=== PATIENT | female | born 1950 | race Caucasian/White ===

== ENCOUNTER → 2016-05-19 | Outpatient (CLI) | payer OTHER, MEDICARE ==
[~2016-05-19] MED LIST: ASPI-435 PO; BUPR-79 PO; CHOL2000 PO; CLON0.5T3 PO; CLR10 PO; CYAN10005 PO; IBUP-1050 PO; MELA1TAB4 PO; MISCCAP80 PO; MULT-188 PO; PRVC10 PO; RANI150T3 PO; ZOLP5TAB6 PO
--- NOTE | 2016-05-19 14:28 | MAMMOGRAPHY REPORT ---
BILATERAL DIGITAL SCREENING MAMMOGRAM WITH CAD: 05/19/2016 CLINICAL HISTORY: Routine screening. Patient has no complaints. TECHNIQUE: Bilateral CC, MLO and left XCCL views were obtained. Current study was also evaluated wi th a Computer Aided Detection (CAD) system. COMPARISON: Comparison is made to exams dated: 05/01/2015 mammogram, 04/27/2013 mammogram, 04/28/2014 flash mogram, 04/26/2012 mammogram, 04/29/2011 ultrasound, and 04/19/2010 mammogram - [facility]. BREAST COMPOSITION: There are scattered areas of fibroglandular density in both breasts. FINDINGS: There are diffuse bilateral round and punctate microcalcifications. No suspicious mass, a rchitectural distortion or cluster of new, suspicious microcalcifications is seen. IMPRESSION: ACR BI-RADS CATEGORY 2: BENIGN There is no mammographic evidence of malignancy. A 1 year screening mammogram is recommended. The p atient will receive written notification of the results. Approximately 10% of breast cancers are not detected with mammography. A negative mammographic repor t should not delay biopsy if a clinically suggestive mass is present. Amira Raymond M.D. ay/:05/19/2016 13:37:20 Ornithology Teacher: Monisha JAMES(R)(M), [facility] letter sent: Normal 1/2 BI-RADS Code: ACR BI-RADS Category 2: Benign
== END | disposition home or self-care (01) ==
LOC: C.MAMM 08:36
PROVIDERS: ATTEND Internal Medicine
DX: Z12.31 Encounter for screening mammogram for malignant neoplasm of breast (principal)

== ENCOUNTER → 2017-05-21 | Outpatient (CLI) | payer OTHER, MEDICARE ==
[~2017-05-21] MED LIST changes: -IBUP-1050 PO; -RANI150T3 PO
--- NOTE | 2017-05-22 07:21 | MAMMOGRAPHY REPORT ---
BILATERAL DIGITAL SCREENING MAMMOGRAM TOMOSYNTHESIS WITH CAD: 05/21/2017 CLINICAL HISTORY: Routine screening. Patient has no complaints. TECHNIQUE: Breast tomosynthesis in addition to standard 2D mammography was performed. Current study was also evaluated with a Computer Aided Detection (CAD) system. COMPARISON: Comparison is made to exams dated: 05/19/2016 mammogram, 05/01/2015 mammogram, 04/28/2014 flash mogram, 04/27/2013 mammogram, 04/26/2012 mammogram, and 04/29/2011 mammogram - [facility] . BREAST COMPOSITION: There are scattered areas of fibroglandular density in both breasts. FINDINGS: No suspicious masses, calcifications, or areas of architectural distortion are noted in ei ther breast. There has been no significant interval change compared to prior exams. Scattered bilater al benign-appearing calcifications are not significantly changed. IMPRESSION: ACR BI-RADS CATEGORY 2: BENIGN There is no mammographic evidence of malignancy. A 1 year screening mammogram is recommended. The pa tient will receive written notification of the results. Approximately 10% of breast cancers are not detected with mammography. A negative mammographic report should not delay biopsy if a clinically suggestive mass is present. Isa Davies M.D. /:05/21/2017 08:46:59 Advertising Director: Rosy JAMES(David)(Basia)(BD), [facility] letter sent: Normal 1/2 BI-RADS Code: ACR BI-RADS Category 2: Benign
== END | disposition home or self-care (01) ==
LOC: C.MAMM 08:28
PROVIDERS: ATTEND Internal Medicine
DX: Z12.31 Encounter for screening mammogram for malignant neoplasm of breast (principal)

== ENCOUNTER 2023-03-24 11:14 | Inpatient (IN) ==
--- NOTE | 2023-02-19 13:57 | PAT Medication Instructions ---
Medication Instructions Date of Service February 19, 2023 Home Medications amlodipine 5 mg tablet 5 mg PO QAM atorvastatin 20 mg tablet 20 mg PO QPM clonazepam 0.5 mg tablet 0.5 mg PO QPM letrozole 2.5 mg tablet 2.5 mg PO QAM aspirin 81 mg tablet,delayed release (Myrtle Low Dose Aspirin) 81 mg PO QAM cholecalciferol (vitamin D3) 50 mcg (2,000 unit) capsule 50 mcg PO QAM loratadine 10 mg tablet (Claritin) 10 mg PO QAM mecobalamin (vitamin B12) 1,000 mcg chewable tablet 1,000 mcg PO QAM melatonin 1 mg tablet 1 mg PO HS vit C,E,zinc,copper-mhoux8a 250 mg-lutein 5 mg-zeaxanthin 1 mg capsule (Ocuvite Adult 50 Plus) 1 cap PO QAM duloxetine 60 mg capsule,delayed release 60 mg PO QAM budesonide 3 mg capsule,delayed,extended release 9 mg PO UD multivitamin 1 tab PO QAM ASK your prescriber and surgeon letrozole 2.5 mg tablet 2.5 mg PO QAM aspirin 81 mg tablet,delayed release (Myrtle Low Dose Aspirin) 81 mg PO QAM STOP taking 2 weeks before surgery (or as soon as possible if surgery is within 2 weeks) vit C,E,zinc,copper-fnntt1l 250 mg-lutein 5 mg-zeaxanthin 1 mg capsule (Ocuvite Adult 50 Plus) 1 cap PO QAM DO NOT take the morning of surgery cholecalciferol (vitamin D3) 50 mcg (2,000 unit) capsule 50 mcg PO QAM loratadine 10 mg tablet (Claritin) 10 mg PO QAM mecobalamin (vitamin B12) 1,000 mcg chewable tablet 1,000 mcg PO QAM budesonide 3 mg capsule,delayed,extended release 9 mg PO UD multivitamin 1 tab PO QAM Take morning of surgery With a small sip of water, OTHERWISE NOTHING TO EAT OR DRINK AFTER MIDNIGHT: amlodipine 5 mg tablet 5 mg PO QAM duloxetine 60 mg capsule,delayed release 60 mg PO QAM Take evening before surgery atorvastatin 20 mg tablet 20 mg PO QPM clonazepam 0.5 mg tablet 0.5 mg PO QPM melatonin 1 mg tablet 1 mg PO HS Other Notes If you have any questions please call us at [phone] or [phone] or [phone] or [phone]
--- NOTE | 2023-02-27 14:16 | Anesthesiology Consultation ---
Date of Service February 27, 2023 Assessment & Plan (1) Encounter for pre-operative examination: Chart Review Chart Review: Acceptable Risk for Surgery (pending PCP clearance ) and Patient seen in Pre Admission Testing - Awaiting PCP clearance 03/05/23 (S)- please fax preop testing for PCP to review per patient request (labs, EKG, CXR) Per PAT appt on 02/27/23, no recent illness/disease exposures, illness related symptoms, or recent illness/disease positive tests. Will leave to surgeon's discretion if preop Covid testing needed Teaching & Discussion Pre-Anesthesia Teaching/Discussion Notes: Instructed NPO after midnight before surgery,except medications with 15 cc of water. Medication instructions provided according to the PAT guidelines. History Surgery Operation Date: 03/13/23 11:55 Proposed Procedures p L4-L5 Decompression and Fusion, Possible L5-S1 Spinal Cord Monitoring - Nikhil Rothman, Height/Weight Height: 5 ft 7 in Weight: 69.7 kg Allergies Allergy/AdvReac Type Severity Reaction Status Date / Time Penicillins Allergy Mild hives Verified 02/19/23 11:51 MYCINS Allergy Mild Hives Uncoded 02/19/23 11:51 SULFA Allergy Unknown Hives Uncoded 02/19/23 11:51 Medications Home Medications Medication Instructions Recorded Confirmed Last Taken amlodipine 5 mg tablet 5 mg PO QAM 10/16/19 02/19/23 Unknown atorvastatin 20 mg tablet 20 mg PO QPM 10/16/19 02/19/23 Unknown clonazepam 0.5 mg tablet 0.5 mg PO QPM 10/16/19 02/19/23 Unknown letrozole 2.5 mg tablet 2.5 mg PO QAM 10/16/19 02/19/23 Unknown aspirin 81 mg tablet,delayed 81 mg PO QAM 04/19/20 02/19/23 Unknown release (Myrtle Low Dose Aspirin) cholecalciferol (vitamin D3) 50 50 mcg PO QAM 04/19/20 02/19/23 Unknown mcg (2,000 unit) capsule loratadine 10 mg tablet (Claritin) 10 mg PO QAM 04/19/20 02/19/23 Unknown mecobalamin (vitamin B12) 1,000 1,000 mcg PO QAM 04/19/20 02/19/23 Unknown mcg chewable tablet melatonin 1 mg tablet 1 mg PO HS 04/19/20 02/19/23 Unknown vit C,E,zinc,copper-uthgo2o 250 1 cap PO QAM 04/19/20 02/19/23 Unknown mg-lutein 5 mg-zeaxanthin 1 mg capsule (Ocuvite Adult 50 Plus) duloxetine 60 mg capsule,delayed 60 mg PO QAM 06/06/22 02/19/23 Unknown release budesonide 3 mg 9 mg PO UD 02/19/23 02/19/23 Unknown capsule,delayed,extended release multivitamin 1 tab PO QAM 02/19/23 02/19/23 Unknown Past Medical History Medical History RLS (restless legs syndrome) Squamous cell skin cancer s/p excisions Colitis recently prescribed meds by Dr Ayala 01/2023 (budesonide)- follows with GI- symptoms improved Hypertension Sleep apnea C PAP Breast cancer - 2019- Right Breast - Invasive Carcinoma, ER/LA+, HER2- s/p right lumpectomy with SN LN removal- s/p XRT; no chemo - Denies limb restriction Lumbar degenerative disc disease Chronic sinusitis Anxiety Exercise / Class Metabolic Activity II 4-5 Yardwork/Stairs/Walk up hill (one flight of stairs- no chest pain or SOB) Past Family History Family History Mother , Passed age 85 of stroke No problems noted. Father , Passed age 85 complications from dementia No problems noted. Brother No problems noted. Brother No problems noted. Other Has no children Past Surgical History Surgical History History of surgery 11/03/18 - Right SLN Excision History of lumpectomy of right breast 09/29/18 Status post injection of intervertebral space for herniated disc 07/06/17 - Lumbar/Sacral with Image Guidance (Dr. Leija) 10/01/17 - Lumbar/Sacral with Image Guidance (Dr. Leija) 12/28/17 - Sacroiliac Joint with Image Guidance (Dr. Leija) History of D&C 1996 History of cystoscopy 07/25/13 History of colonoscopy 03/28/09, 07/05/132022 History of Mohs surgery for squamous cell carcinoma of skin 2017 - Right Upper Arm Past Anesthesia History No Hx of Anesthesia Complications and No Family Hx of Anesthesia Complications History of PONV No Hx of PONV and No Hx of Motion Sickness Social History Smoking Status: Former smoker Do You Dip or Chew Tobacco: No Smoking End Date: Quit 2018 Hx Alcohol Use: Yes Alcohol type: wine alcohol intake frequency: a few times a week Hx Substance Use: No Review of Systems - Chronic cough with CPAP; chronic post nasal drip- stable Patient denies chest pain, shortness of breath, dyspnea on exertion, reflux, wheezing, palpitations. No hx of seizures, stroke, ND. No hx of blood clots or blood transfusions Physical Exam Vital Signs VITALS BP 119/70 P 77 TEMP 98.1 SP02 94% RESP 16 Constitutional no acute distress ENMT Mouth: no TMJ clicking Thyromental Distance: > or= 3.5 Finger Breadths (3.5) Mallampati Class: I Crowns to side teeth and molars Neck neck extension not limited Respiratory normal respiratory effort; no respiratory distress Auscultation: lungs clear to auscultation bilaterally; no wheezes Cardiovascular Rate/Rhythm: regular rate and regular rhythm Heart Sounds: no murmur Vessels: no carotid bruit Musculoskeletal Spine: no pain with cervical ROM Extremities: extremities normal to inspection Psychiatric Orientation: alert Lab Results Anesthesia Preop Results Results Anesthesia Widget: WBC 8.37 K/ul (4.8-10.8) 02/27/23 Hgb 14.4 g/dl (12.0-16.0) 02/27/23 Hct 44.1 % (37.0-47.0) 02/27/23 Plt 271 K/uL (130-400) 02/27/23 Na 138 mmol/L (136-145) 02/27/23 K 4.1 mmol/L (3.5-5.1) 02/27/23 Cl 104 mmol/L (98-107) 02/27/23 CO2 26 mmol/L (21-32) 02/27/23 BUN 21 mg/dl (6-23) 02/27/23 Creat 0.52 mg/dl (0.6-1.2) L 02/27/23 Glucose Level 95 mg/dl (70-99(Fasting)) 02/27/23 PT 10.4 Seconds (9.0-12.0) 02/27/23 PTT 28 Seconds (21-31) 02/27/23 INR 0.9 (0.9-1.1) 02/27/23 Urine Color Yellow 02/27/23 Urine Appearance Clear (Clear) 02/27/23 Urine pH 6.0 (4.5-7.5) 02/27/23 Urine Specific [place] 1.016 (1.000-1.030) 02/27/23 Urine Protein Negative (Negative) 02/27/23 Urine Glucose (UA) Negative (Negative) 02/27/23 Urine Ketones Negative (Negative) 02/27/23 Urine Blood Negative (Negative) 02/27/23 Urine Nitrite Negative (Negative) 02/27/23 Urine Bilirubin Negative (Negative) 02/27/23 Urine Urobilinogen Negative (Negative) 02/27/23 Urine Leukocyte Esterase Negative (Negative) 02/27/23 Blood Type O Positive 02/27/23 Antibody Screen NEGATIVE 02/27/23 Testing Electrocardiogram Date: 02/27/23 Findings: + NSR @ (78bpm) Normal EKG per cardio Chest X-Ray Date: 02/27/23 FINDINGS: PA and lateral chest radiographs are compared to study dated 08/09/2018. Correlation is made with chest CT dated 08/10/2007. The cardiomediastinal silhouette is unremarkable. A 13 mm left upper lobe nodule has been present dating back to 2007. There is minimal bibasilar scarring/atelectasis. The lungs and pleural spaces are otherwise clear. There is no pneumothorax. The skeletal structures are osteopenic. There are chronic/healed left-sided rib fractures. IMPRESSION: 1. No active disease in the chest. 2. A 13 mm left upper lobe pulmonary nodule has been present dating back to 2007. This is of doubtful significance given long-term stability. (Will send to PCP for continuity of care; patient also seeing patient for preop 03/05/23)
[~2023-03-24 11:14] MED LIST changes: +ACETAMINOPHEN 500 MG TAB PO SCH; -ASPI-435 PO; -BUPR-79 PO; -CHOL2000 PO; -CLON0.5T3 PO; -CLR10 PO; -CYAN10005 PO; +DEXAMETHASONE SOD INJ 4 MG/ML VIAL ONE; +GABAPENTIN 300 MG CAP PO SCH; +LIDOCAINE 2% 2 ML VIAL/AMP(20MG/ML) INFIL ONE; +LR 15ML/HR IV SCH; +LR 60ML/HR IV SCH; -MELA1TAB4 PO; +MIDAZOLAM HCL 1 MG/ML 2ML VIAL ONE; -MISCCAP80 PO; -MULT-188 PO; +ONDANSETRON INJ 2 MG/ML 2 ML VIAL ONE; +PROPOFOL IV EMULSION 10 MG/ML 20 ML VIAL IV ONE; -PRVC10 PO; +ROCURONIUM BROMIDE 10 MG/ML 5 ML VIAL IV ONE; +VANCOMYCIN HCL 1,000 MG/270 ML BAG IV SCH; -ZOLP5TAB6 PO; +fentaNYL citrate PF 100 MCG/2 ML VIAL ONE
[2023-03-24] MEDS ORDERED: ATROPINE SULFATE 0.1 MG/ML 10ML SYR IV PRN (12:18)
[2023-03-24] MEDS ORDERED: HYDROmorphone INJ 2 MG/ML SYR/VIAL IV PRN (12:18)
[2023-03-24] MEDS ORDERED: ePHEDrine sulfate 50 MG/ML AMP IV PRN (12:18)
[2023-03-24] MEDS ORDERED: ONDANSETRON INJ 2 MG/ML 2 ML VIAL IV PRN ×2 (12:18→15:50)
--- NOTE | 2023-03-24 12:43 | History & Physical Bridge Note ---
Date of Service March 24, 2023 History & Physical Bridge Note I have examined the patient, reviewed the History & Physical and in the interval since the performance of the History & Physical I have noted the following changes of clinical significance: no changes noted
--- NOTE | 2023-03-24 12:44 | History & Physical Report ---
Date of Service March 24, 2023 Assessment & Plan (1) Neurogenic claudication due to lumbar spinal stenosis: Plan: L4-L5 decompression and fusion, possible L5-S1 History of Present Illness Chief Complaint: Back and bilateral leg pain Primary Care Provider: Daniel Menon PA-C This is a 72-year-old female presents with chronic persistent back and leg pain and failing course of nonoperative care is here for surgical intervention. Allergies Allergy/AdvReac Type Severity Reaction Status Date / Time Penicillins Allergy Mild hives Verified 03/24/23 11:38 MYCINS Allergy Mild Hives Uncoded 03/24/23 11:38 SULFA Allergy Unknown Hives Uncoded 03/24/23 11:38 Home Medications Medication Instructions Recorded Confirmed Type amlodipine 5 mg tablet 5 mg PO QAM 10/16/19 02/19/23 History atorvastatin 20 mg tablet 20 mg PO QPM 10/16/19 02/19/23 History clonazepam 0.5 mg tablet 0.5 mg PO QPM 10/16/19 02/19/23 History letrozole 2.5 mg tablet 2.5 mg PO QAM 10/16/19 03/24/23 History aspirin 81 mg tablet,delayed 81 mg PO QAM 04/19/20 03/24/23 History release (Myrtle Low Dose Aspirin) cholecalciferol (vitamin D3) 50 50 mcg PO QAM 04/19/20 03/24/23 History mcg (2,000 unit) capsule loratadine 10 mg tablet (Claritin) 10 mg PO QAM 04/19/20 03/24/23 History mecobalamin (vitamin B12) 1,000 1,000 mcg PO QAM 04/19/20 03/24/23 History mcg chewable tablet melatonin 1 mg tablet 1 mg PO HS 04/19/20 02/19/23 History vit C,E,zinc,copper-vwmvg2n 250 1 cap PO QAM 04/19/20 02/19/23 History mg-lutein 5 mg-zeaxanthin 1 mg capsule (Ocuvite Adult 50 Plus) duloxetine 60 mg capsule,delayed 60 mg PO QAM 06/06/22 02/19/23 History release budesonide 3 mg 9 mg PO UD 02/19/23 02/19/23 History capsule,delayed,extended release multivitamin 1 tab PO QAM 02/19/23 02/19/23 History Past Med/Surg History Medical History RLS (restless legs syndrome) Squamous cell skin cancer s/p excisions Colitis recently prescribed meds by Dr Ayala 01/2023 (budesonide)- follows with GI- symptoms improved Hypertension Sleep apnea C PAP Breast cancer - 2019- Right Breast - Invasive Carcinoma, ER/IN+, HER2- s/p right lumpectomy with SN LN removal- s/p XRT; no chemo - Denies limb restriction Lumbar degenerative disc disease Chronic sinusitis Anxiety Surgical History History of surgery 11/03/18 - Right SLN Excision History of lumpectomy of right breast 09/29/18 Status post injection of intervertebral space for herniated disc 07/06/17 - Lumbar/Sacral with Image Guidance (Dr. Leija) 10/01/17 - Lumbar/Sacral with Image Guidance (Dr. Leija) 12/28/17 - Sacroiliac Joint with Image Guidance (Dr. Leija) History of D&C 1996 History of cystoscopy 07/25/13 History of colonoscopy 03/28/09, 07/05/13, 2022 History of Mohs surgery for squamous cell carcinoma of skin 2016 - Right Upper Arm Family History Mother , Passed age 85 of stroke No problems noted. Father , Passed age 85 complications from dementia No problems noted. Brother No problems noted. Brother No problems noted. Other Has no children Social History (Updated 11/24/18 @ 09:55 by Serene Patel RN) Smoking Status: Former smoker packs per day: 0.5; Smoking End Date: Quit 2018; Second Hand Exposure: No; Do You Dip or Chew Tobacco: No; Tobacco Cessation Education Requested by Patient: No Hx Alcohol Use: Yes Alcohol type: wine Alcohol Intake Frequency Comment: 2 glasses of wine every other night Hx Substance Use: No Preferred Language: Malagasy Visual Impairment: Limited Hearing Ability: Use of Hearing Aid Aquarium Specialist Required: No Beliefs That Will Affect Care: None marital status: Single Current Living Situation: Alone current occupational status: retired 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
[2023-03-24] MEDS ORDERED: BUPIVACAINE/EPINEPHRINE 0.5% MPF 1:200,000 30 ML VIAL ONE (12:50)
[2023-03-24] MEDS ORDERED: ePHEDrine sulfate 50 MG/5 ML SYR ONE (13:30)
[2023-03-24] MEDS ORDERED: SUGAMMADEX SODIUM 200 MG/2 ML VIAL IV ONE (13:54)
[2023-03-24] MEDS ORDERED: FLOSEAL HEMOSTATIC MATRIX 10ML TOP ONE (14:17)
--- NOTE | 2023-03-24 14:27 | Operative Report ---
Post Operative Report Pre & Post Diagnosis Operation Date: 03/24/23 12:45 Pre-Op Diagnosis: Spondylolisthesis, Lumbar Region Spinal Stenosis Lumbar spinal stenosis with neurogenic claudication Post-Op Diagnosis: Same I identified the patient and participated in the time-out.: Yes Procedure Operation Date: 03/24/23 12:45 Actual Procedures Lumbar decompression bilaterally facetectomies and foraminotomies L3-L4 L4-5 per #2 posterior spinal fusion L4-5 per #3 placed posterior instrumentation L4-5. #4 interbody fusion L4-5. #5 placement Spira 13 x 26 mm at L4-5. #6 placement of locally harvested morselized autograft in the posterior gutters. #7 placement of infuse collagen sponge combined with Koros in the posterior lateral gutters and Morpheus bone graft interbody space. Surgeon Nikhil Rothman DO Commercial Housekeeper Amy Desai Estimated Blood Loss 50 Findings Consistent with Post-Op Diagnosis Specimens None Indications This is a 72-year-old female who presents above-mentioned diagnosis of failed course of nonoperative care is here for surgical invention. Description of Procedure Patient met with identified informed consent obtained. Patient was then taken to the operative suite underwent patient placed in a prone position on the [facility] frame. All bony promises well-padded eyes inspected to ensure no external pressure on the. This point the lumbar spine was prepped and draped in a sterile fashion. Sharp dissection with assistance bradycardia from down to and exposing the lamina transverse processes of L4-5. From caudal cephalad fashion complete laminectomy of L4 partial laminectomy L3 was performed including bilateral medial facetectomies and foraminotomies addressing severe spinal stenosis. Pedicle screws were then placed in L4-L5 bilaterally with assistance of fluoroscopy and the purposes austin placed. By way the transforaminal approach on the right complete discectomy of L4-5 was performed endplates guided to subcortically and bone and a 13 x 26 mm Spira cage with Morpheus bone graft tapped in position. The rods were then compressed locked in final position bilaterally. The transverse processes of L4-5 burred to subcortical bleeding bone. Infuse collagen sponge combined with Koros and local autograft placed in the posterior gutters. 15 round ANJELICA drain inserted. The incision was then closed with 1 Vicryl the fascia 2-0 Vicryl subcutaneously and 4 Monocryl for final skin closure. Steri-Strips sterile dressings placed. Pat ient waken taken to PACU in stable condition. Please note spinal cord monitoring was utilized at the procedure no changes noted. Lastly Amy Desai was present at the entire surgery involved in patient positioning complex portion of the surgery and final skin closure. I attest to the content of the Intraoperative Record and any orders documented therein. Any exceptions are noted below.
--- NOTE | 2023-03-24 14:44 | Fluoroscopy Report ---
FL lumbar spine 2-3V CLINICAL HISTORY: L4-L5 DECOMP/FUSION, POSSIBLE L5-S1 COMPARISON STUDY: CT 08/04/2018 FLUOROSCOPY TIME: 17.3 seconds FLUOROSCOPY IMAGES: 2 EXPOSURE DOSE: 8.37 mGy FINDINGS: A radiopaque sponge is noted anterior to the sacrum. Posterior decompression with interbody [place] and screw fusion and discectomy at L4-L5. The hardware appears intact. Multilevel spondylotic sp urring and facet arthrosis redemonstrated. Note that the images were submitted following completion o f the surgery. IMPRESSION: Fluoroscopic assistance as above. ACT 112: Negative or not required by law. Electronically signed by: Raymundo Patel M.D. 03/24/2023 2:43 PM
[2023-03-24] MEDS: fentaNYL citrate PF 100 MCG/2 ML VIAL IV PRN ×2 (15:07→15:12)
--- NOTE | 2023-03-24 15:36 | Anesthesiology Progress Note ---
Date of Service March 24, 2023 Anesthesia Post Procedure Vital Signs Vital Signs: Temp Pulse Pulse Resp BP Pulse Ox O2 Del Method 03/24/23 15:25 36.5 C 80 17 130/56 L 94 Nasal Cannula 03/24/23 15:15 88 20 139/60 94 Nasal Cannula 03/24/23 15:05 89 17 120/74 96 Nasal Cannula 03/24/23 14:55 86 19 142/63 H 95 Nasal Cannula 03/24/23 14:45 90 16 145/62 H 94 Nasal Cannula 03/24/23 14:37 36.1 C L 96 H 16 133/64 96 Room Air 03/24/23 12:05 37.2 C 73 20 132/80 94 Room Air O2 Flow Rate 03/24/23 15:25 2 03/24/23 15:15 2 03/24/23 15:05 2 03/24/23 14:55 2 03/24/23 14:45 2 03/24/23 14:37 03/24/23 12:05 Pain Intensity Back: Pain Intensity: 5 Transfer of Care Handoff Completed per policy Notes Mental Status: alert / awake / arousable Patient Amnestic to Procedure: Yes Nausea / Vomiting: adequately controlled Pain: adequately controlled Airway Patency, RR, SpO2: stable & adequate BP & HR: stable & adequate Hydration State: stable & adequate Anesthetic Complications: no major complications apparent
[2023-03-24] MEDS ORDERED: NALOXONE HCL 0.4 MG/1 ML VIAL/CARP IV PRN (15:50)
[2023-03-24] MEDS ORDERED: PROMETHAZINE HCL 12.5 MG in SODIUM CHLORIDE 0.9% 50 ML IV PRN (15:50)
[2023-03-24] MEDS ORDERED: diphenhydrAMINE Capsule 25 MG CAP PO PRN (15:50)
[2023-03-24] MEDS ORDERED: LORazepam 0.5 MG TAB PO PRN (15:50)
[2023-03-24] MEDS ORDERED: ONDANSETRON 4 MG OD TAB PO PRN (15:50)
[2023-03-24] MEDS ORDERED: traMADol HCL 50 MG TABLET PO PRN (15:50)
[2023-03-24] MEDS ORDERED: DO NOT ADMINISTER FLU VACCINE PRN (15:50)
[2023-03-24] MEDS ORDERED: ALUMINUM/MAGNESIUM SUSP 30 ML UDC PO PRN (15:50)
[2023-03-24] MEDS ORDERED: FAMOTIDINE 20 MG TAB PO PRN (15:50)
[2023-03-24] MEDS ORDERED: VANCOMYCIN CONSULT ACTIVE PRN (15:50)
[2023-03-24] MEDS ORDERED: bisacodyL 10 MG SUPP PR PRN (15:50)
[2023-03-24] MEDS ORDERED: hydrOXYzine HCl 25 MG TAB PO PRN (15:50)
[2023-03-24] MEDS ORDERED: SOD PHOSPHATE/SOD BIPHOSPHATE ENEMA 132 ML BTL PR PRN (15:50)
[2023-03-24] MEDS ORDERED: HYDROmorphone INJ 1 MG/ML SYRINGE IV PRN (15:50)
[2023-03-24] MEDS ORDERED: HYDROmorphone INJ 0.5 MG/0.5 ML SYR IV PRN (15:50)
[2023-03-24] MEDS ORDERED: ACETAMINOPHEN 1,000 MG/100 ML VIAL IV PRN (15:50)
[2023-03-24] MEDS ORDERED: LORazepam 0.5 MG in SYRINGE 0.25 ML IV PRN (15:50)
[2023-03-24] MEDS ORDERED: METOCLOPRAMIDE HCL INJ 5 MG/ML 2 ML VIAL IV PRN (15:50)
[2023-03-24] MEDS ORDERED: MAGNESIUM HYDROXIDE SUSP 30 ML UDC PO PRN (15:50)
[2023-03-24] MEDS ORDERED: DO NOT ADMINISTER PNEUMOCOCCAL VACCINE PRN (15:50)
[2023-03-24] MEDS: LACTATED RINGER'S 1,000 ML IV SCH (16:09)
--- NOTE | 2023-03-24 16:34 | Hospitalist Consultation ---
Date of Consultation March 24, 2023 Assessment & Plan (1) Neurogenic claudication due to lumbar spinal stenosis: - POD #0 s/p L3-L5 lumbar decompression fusion - Pain management, DVT ppx per the primary team, last BM this morning - adjust miralax to daily abdirahman with hx of colitis and recently finishing budesonide for collagenous colitis - PT/OT consults, pt is planning on outpatient therapy - has multiple friends who are helping her at home - Follow am CBC to monitor for acute blood loss, last Hgb of 14.4 (2) Respiratory insufficiency: (3) Sleep apnea: - Currently requiring supplemental O2 at 2 L with sats 93% - Discussed use of clonazepam while on O2, encouraged CPAP use tonight as she initially decline using it, agreeable after conversation regarding hx of chronic tobacco use with cessation 4 years ago, she reports being on benzo for years to help with sleep - would advise weaning off this in elderly patient with hx of BRENDA - will benefit from discussion with PCP at follow up - CPAP HS ordered, pt brought own from home (4) Anxiety: -Continue clonazepam 0.5 mg every afternoon, duloxetine 60 mg daily (5) Breast cancer: -History of such, 2019, stable/in remission - ER/NE positive, HER2/bon negative, status post right lumpectomy with SNL and removal, s/p XRT, no IV chemo. - Pt taking oral letrozole tablet daily - Follows with outpt oncology - Continue vitamin D supplementation (6) Hypertension: -Chronic, stable -Can continue amlodipine p.o., baby aspirin daily DVT ppx:teds, scds Lines: 2 PIV, ANJELICA drain in place FEN/GI: HH diet CODE: FULL Dispo: From home, likely to remain in the hospital x 1-2 days A total of 45 minutes were spent with greater than 50% of that time face to face with the patient, personally reviewing all current laboratories, imaging studies, past medication reconciliation, outpatient chart review, and discussion with specialists to collaborate care for the patient with attending. Please see attending documentation for corrections and/or additions. Supervising Physician Co-Signing Physician Notes I have seen and discussed the case with the collaborating ROSANA. I agree with the above H&P. I have reviewed and confirmed the patients medical history, the findings on physical examination, and the patients diagnosis and treatment plan with Reji WAYNE and agree with the information documented. In short, Ms. Pantoja is a 72 year old woman with history of breast cancer on letrazole, collagenous colitis, BRENDA on CPAP, chronic insomnia who is now POD 0 for lumbar decompression. Patient on 2 L NC post-op, long standing tobacco use history, no formal diagnosis of COPD. Medicine on consult for comanagement. Gen: Cooperative, pleasant female, sitting upright CV RRR, no murmur Resp diminshed RLL, no wheezing, no crackles, good flow otherwise ABD: soft NTND MSK moving toes, sensation intact Neuro CN II-XII intact #Acute resp insufficiency postoperative -Wean oxygen as tolerated Encourage IS use Use CPAP at night Consider CXR if not improved/persistent O2 requirement #Neurogenic claudication s/p lumbar decompression -pain management per primary service -Follow CBC post op, transfuse < 7 no longer on budesonide taper Resume all home chronic medications I spent a total of 15 minutes coordinating, documenting, and providing care for this patient excluding time spent in the performance of separately billed services. All of the aforementioned completed while collaborating with the assigned physician family services assistant for a full treatment plan. History of Present Illness Reason for Consultation: Medical management Requesting Physician: Dr. Rothman Attending Physician: Nikhil Rothman, History of Present Illness This is a 72-year-old female with PMHx of HTN, breast cancer ER/NE positive, HER2/bon negative, status post right lumpectomy with SNL and removal, s/p XRT, no chemo, BRENDA with CPAP, RLS, anxiety, and lumbar degenerative disc disease, recently treated for collagenous colitis in end jan with budesonide. Hx of smoking, quit 4 year ago. Pt presents to the hospital for elective lumbar decompression fusion L3-L5 by Dr. Rothman on 03/24/2023. PT reports doing well, she denies any acute pain currently. Last BM was this morning. Pt has tolerated clear liquids since coming up to the floor, no food yet but dinner is arriving during our visit. She is no longer on budesonide taper for colitis as her bowels returned to normal. Pt denies any nausea, vomiting. Pt states she does use CPAP HS at home and brought it with her today. Allergies Allergy/AdvReac Type Severity Reaction Status Date / Time Penicillins Allergy Mild hives Verified 03/24/23 11:38 MYCINS Allergy Mild Hives Uncoded 03/24/23 11:38 SULFA Allergy Unknown Hives Uncoded 03/24/23 11:38 Home Medications Medication Instructions Recorded Confirmed Type amlodipine 5 mg tablet 5 mg PO QAM 10/16/19 03/24/23 History atorvastatin 20 mg tablet 20 mg PO QPM 10/16/19 03/24/23 History clonazepam 0.5 mg tablet 0.5 mg PO QPM 10/16/19 03/24/23 History letrozole 2.5 mg tablet 2.5 mg PO QAM 10/16/19 03/24/23 History aspirin 81 mg tablet,delayed 81 mg PO QAM 04/19/20 03/24/23 History release (Myrtle Low Dose Aspirin) cholecalciferol (vitamin D3) 50 50 mcg PO QAM 04/19/20 03/24/23 History mcg (2,000 unit) capsule loratadine 10 mg tablet (Claritin) 10 mg PO QAM 04/19/20 03/24/23 History mecobalamin (vitamin B12) 1,000 1,000 mcg PO QAM 04/19/20 03/24/23 History mcg chewable tablet melatonin 1 mg tablet 1 mg PO HS 04/19/20 03/24/23 History vit C,E,zinc,copper-ifkln0j 250 1 cap PO QAM 04/19/20 03/24/23 History mg-lutein 5 mg-zeaxanthin 1 mg capsule (Ocuvite Adult 50 Plus) duloxetine 60 mg capsule,delayed 60 mg PO QAM 06/06/22 03/24/23 History release budesonide 3 mg 9 mg PO UD 02/19/23 03/24/23 History capsule,delayed,extended release multivitamin 1 tab PO QAM 02/19/23 03/24/23 History Patient History Medical History (Updated 03/24/23 @ 17:09 by Pilar Mendoza PA-C) RLS (restless legs syndrome) Squamous cell skin cancer s/p excisions Colitis recently prescribed meds by Dr Ayala 01/2023 (budesonide)- follows with GI- symptoms improved Hypertension Sleep apnea C PAP Breast cancer - 2019- Right Breast - Invasive Carcinoma, ER/NE+, HER2- s/p right lumpectomy with SN LN removal- s/p XRT; no chemo - Denies limb restriction Lumbar degenerative disc disease Chronic sinusitis Anxiety Surgical History History of surgery 11/03/18 - Right SLN Excision History of lumpectomy of right breast 09/29/18 Status post injection of intervertebral space for herniated disc 07/06/17 - Lumbar/Sacral with Image Guidance (Dr. Leija) 10/01/17 - Lumbar/Sacral with Image Guidance (Dr. Leija) 12/28/17 - Sacroiliac Joint with Image Guidance (Dr. Leija) History of D&C 1996 History of cystoscopy 07/25/13 History of colonoscopy 03/28/09, 07/05/13, 2022 History of Mohs surgery for squamous cell carcinoma of skin 2016 - Right Upper Arm Family History Mother , Passed age 85 of stroke No problems noted. Father , Passed age 85 complications from dementia No problems noted. Brother No problems noted. Brother No problems noted. Other Has no children Social History (Updated 11/24/18 @ 09:55 by Serene Patel RN) Smoking Status: Former smoker packs per day: 0.5; Smoking End Date: Quit 2018; Second Hand Exposure: No; Do You Dip or Chew Tobacco: No; Tobacco Cessation Education Requested by Patient: No Hx Alcohol Use: Yes Alcohol type: wine Alcohol Intake Frequency Comment: 2 glasses of wine every other night Hx Substance Use: No Preferred Language: Slovak Visual Impairment: Limited Hearing Ability: Use of Hearing Aid Coordinator Of Evaluation Required: No Beliefs That Will Affect Care: None marital status: Single Current Living Situation: Alone current occupational status: retired 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 @ [employer] Other Information That Helps Us Care for You: No Feels Safe at Home: Yes Safety Concerns: Feels Safe At This Time Childhood Exposure to Second-Hand Smoke: No during the past year weight has: remained stable Dental Care, Regularly: Yes Assistive Devices: Glasses and Hearing Aid - Bilateral Review of Systems Review of Systems: Constitutional: No fever, sweats or chills Eyes: No diplopia, no worsening or blurred vision ENT: normal hearing, no trouble swallowing Respiratory: No cough, sputum, dyspnea at rest or on exertion, wears CPAP HS Cardiovascular: No chest pain, tightness or palpitations Abdomen: No pain, nausea, vomiting, diarrhea or constipation, Last BM this morning Musculoskeletal: No joint pain, calf pain, swelling Neurologic: No weakness, numbness/tingling, or balance problems Psychiatric: No anxiety or depression Skin: No rash or itch Physical Exam Physical Exam: General: awake, alert, no apparent distress, white, female, BMI 23.9 Head: Normocephalic, atraumatic ENT: PERRL, EOMI, no pharyngeal exudate, mucous membranes moist Chest: Diminished breath sounds at the right base, On 2 L via NC, o2 sats 93%, no adventitious breath sounds Cardiac: Regular rate and rhythm, no murmur, no JVD, normal peripheral pulses, good capillary refill Back : dressing c/d/i, ANJELICA drain with serosanginous bloody outs Abdominal: NABS x 4 quadrants, soft, nondistended, nontender to palpation, no rebound or guarding Extremities: Normal inspection, no peripheral edema or erythema, calfs nontender to palpation Psych: Normal mood and affect Neuro: AAO x 3, strength intact bilaterally and rated 5/5, no motor deficits, speech is clear, no peripheral sensory deficits Results & Data Results & Data Vital Signs (Past 12 Hours) Vital Signs Temp Pulse Pulse Resp BP Pulse Ox O2 Del Method 03/24/23 16:15 36.5 C 88 16 149/76 H 93 Nasal Cannula 03/24/23 15:51 36.5 C 84 16 138/66 94 Nasal Cannula 03/24/23 15:35 83 18 114/49 L 94 Nasal Cannula 03/24/23 15:25 36.5 C 80 17 130/56 L 94 Nasal Cannula 03/24/23 15:15 88 20 139/60 94 Nasal Cannula 03/24/23 15:05 89 17 120/74 96 Nasal Cannula 03/24/23 14:55 86 19 142/63 H 95 Nasal Cannula 03/24/23 14:45 90 16 145/62 H 94 Nasal Cannula 03/24/23 14:37 36.1 C L 96 H 16 133/64 96 Room Air 03/24/23 12:05 37.2 C 73 20 132/80 94 Room Air O2 Flow Rate 03/24/23 16:15 2 03/24/23 15:51 2 03/24/23 15:35 2 03/24/23 15:25 2 03/24/23 15:15 2 03/24/23 15:05 2 03/24/23 14:55 2 03/24/23 14:45 2 03/24/23 14:37 03/24/23 12:05
--- OUTSIDE RECORDS SUMMARY | 2023-03-24 18:15 | External Medical Summary | Summary of Care ---
Author Name Unknown Organization [facility] Address [address] [place] [address] Phone [phone] Care Team Providers Care Fitness Consultant Name Role Phone Anuradha Arroyo PA-C Primary Care Provider [phone] Reason for Visit * Reason Comments eRx-Medication Refill Encounter Details Date Type Department Care Team (Late st Contact Info) Description 03/19/2023 Refill General Internal Medicine [facility] [address] [place] [address] Aym Lew MD [address] [place] [address] Dyslipidemia, goal LDL below 160; Primary insomnia; Periodic limb movement sleep disorder Allergies Active Allergy Reactions Criticality Noted Date Comments Elemental Sulfur 05/23/2015 Erythromycin Base 06/29/2000 hives Penicillins 06/29/2000 Augmentin hives Sulfa Antibiotics 09/17/1999 Hives documented as of this encounter (statuses as of 03/20/2023) Medications Medication Sig Dispensed Refills Start Date End Date Status MELATONIN 1 MG PO TABS one at bedtime 0 Active CLARITIN 10 MG PO TABS One pill by mouth once a day 0 11/22/2013 Active VITAMIN D3 2000 UNITS PO CAPS Take 1 capsule daily. 90 Cap 1 12/02/2013 Active Aspirin 81 MG Tablet Take 1 Tablet by mouth in the morning. 0 Active Cyanocobalamin (VITAMIN B-12) 1000 MCG Tablet Take 1 Tablet by mouth in the morning. 0 06/10/2018 Active Multiple Vitamins-Minerals (OCUVITE ADULT 50+) Capsule Take 1 Capsule by mouth in the morning. 0 Active Letrozole 2.5 MG Oral Tablet (Femara)Indicatio ns:Malignant neoplasm of right female breast, unspecified estrogen receptor status, unspecified site of breast (HCC) Take 1 Tablet by mouth in the morning. 90 Tablet 3 06/05/2022 Active amLODIPine Besylate 5 MG Oral Tablet (Norvasc)Indicati ons:HTN, goal below 140/90 Take 1 Tablet by mouth in the morning. 90 Tablet 3 08/08/2022 Active DULoxetine HCl 60 MG Oral Capsule Delayed Release Particles (Cymbalta)Indicat ions:Spinal stenosis of lumbar region with neurogenic claudication TAKE 1 CAPSULE BY MOUTH EVERY MORNING. DO NOT CUT, CRUSH, OR CHEW 30 Capsule 5 12/19/2022 Active Additional Information Patient taking differently: HS, Reported on 02/12/2023 Womens One Daily Oral Tablet Take by mouth. 0 Active Budesonide 3 MG Oral Capsule Delayed Release Particles (Entocort EC) take 3 tablets by mouth daily for a month then 2 daily for a month then 1 daily for a month. 90 Capsule 1 02/13/2023 Active Atorvastatin Calcium 20 MG Oral Tablet (Lipitor)Indicati ons:Dyslipidemia, goal LDL below 160 Take 1 Tablet by mouth daily. 90 Tablet 1 03/20/2023 Active clonazePAM 0.5 MG Oral Tablet (KlonoPIN)Indicat ions:Primary insomnia,Periodic limb movement sleep disorder TAKE 1 TABLET BY MOUTH AT BEDTIME FOR RESTLESS LEG SYNDROME/INSOMNI A 30 Tablet 0 03/20/2023 Active Atorvastatin Calcium 20 MG Oral Tablet (Lipitor)Indicati ons:Dyslipidemia, goal LDL below 160 Take 1 Tablet (20 mg) by mouth in the morning. 90 Tablet 3 01/06/2022 03/20/19 24 Discontinued clonazePAM 0.5 MG Oral Tablet (KlonoPIN)Indicat ions:Primary insomnia,Periodic limb movement sleep disorder TAKE 1 TABLET BY MOUTH AT BEDTIME FOR RESTLESS LEG SYNDROME/INSOMNI A 30 Tablet 0 02/20/2023 03/20/19 24 Discontinued documented as of this encounter (statuses as of 03/20/2023) Active Problems Problem Noted Date Diagnosed Date Major depressive disorder wi th single episode, in partial remission 03/31/2022 Malignant neoplasm of right female breast 2022 Periodic limb movement sleep disorder 03/18/2021 Anxiety state 11/16/2018 Osteoarthritis, hip, bilateral 06/01/2017 Lumbar degenerative disc disease 06/01/2017 History of Mohs surgery for squamous cell carcin maksim of skin 06/01/2017 Primary insomnia 03/12/2017 Sensorineural hearing loss (SNHL) of both ears 0 11/06/2016 Degenerative disc disease, cervical 09/07/2014 Collagenous colitis 10/17/2013 Cyst of right kidney 09/01/2013 Sleep apnea, obstructive 07/12/2012 Dyslipidemia, goal LDL below 160 11/04/2010 Nodule of left lung 03/13/2008 Overview: Stable [id number] imaging ADVANCE DIRECTIVE INFORMATION 07/15/2004 Overview: No, Advance Directive brochure given to patient. DIVERTICULOSIS OF COLON 12/29/2003 HTN, goal below 140/90 11/28/2003 HISTORY OF TOBACCO USE Chronic sinusitis documented as of this encounter (statuses as of 03/20/2023) Resolved Problems Problem Noted Date Diagnosed Date Resolved Date History of breast cancer 08/09/201807/2022 Squamous cell cancer of skin of upper arm 06/01/2017 06/01/2017 Asymmetrical right sensorineural hearing loss 11/07/19 17 03/18/2021 Dyslipidemia, goal to be determined 02/01/2009 11/04/2010 Overview: Per Lipid Taxonomy. Dyslipidemia, goal LDL below 160 06/12/2008 02/01/2009 Overview: Per Lipid Taxonomy. Pain in limb 01/31/2003 09/18/2016 Dermatitis 09/16/2001 03/12/2017 Hand Dermatitis 09/16/2001 03/12/2017 documented as of this encounter (statuses as of 03/20/2023) Immunizations Name Administration Dates Next Due COVID-19 mRNA, LNP-s, No Pre serve, 2-Dose Series (Fishbowl) 12/13/2020,05/02/2020,04/04/2020 COVID-19, MRNA-LNP, 23-24, P F, 30 MCG/0.3 mL, 12 YRS AND ABOVE, IM (PFIZER-Comirnaty) 02/26/2023 H1N1 2009 Influenza, IM 01/10/2009,01/08/2009 H1N1 2009 Influenza, Intranasal 01/10/2009 HEP A - Hepatitis A (Adult > 18 yrs) 03/12/2006 Pneumococcal Conjugate Vacc, 13 Valent (Prevnar) 03/21/2015 Pneumococcal Conjugate Vacci ne, 20-valent ([id number]) 02/12/2023 Pneumococcal Polysaccharide PPV23 (Pneumovax) 10/17/2013,06/12/2008 RSV Vac., Recomb, Adjuvant, PF,0.5 Ml (Arexvy) 12/12/2022 Seasonal Influenza, PF, 6 M & above, IM , (FluLaval or Fluzone) 12/10/2017,12/23/2016,12/02/2013,12/20,11/03/2011,11/04/2010,11/13/2009 ,02/13/2009,12/09/2007,01/04/2007,02/2005,01/01/2005,03/18/2004, 3,01/14/2002,02/09/2001 Seasonal Influenza, Quadriva lent Hd (Fluzone Hd) 11/25/2022,11/02/2020 Seasonal Influenza, Quadriva lent Hd, 65+ Yrs 11/19/2021 Seasonal Influenza, Quadriva lent, No Preserve, IM 11/05/2015,12/27/2014 Seasonal Influenza, Split, I IV3, With Preserve, Inj 12/02/2013,12/20/2012,11/03/2011,11/04,11/13/2009,02/13/2009,12/09/2007 ,01/04/2007,12/24/2005 Seasonal Influenza, Trivalen t, Adjuvanted, 65+ yrs 11/23/2019,11/16/2018 TD, Preservative Free 03/11/2002 TDAP (age 10 and older)(Boostrix) 02/12/2023,,03/11/2002 Varicella Zoster Vaccine (Adult) 11/03/2011 documented as of this encounter Social History Tobacco Use Types Packs/Day Years Used Date Smoking Tobacco: Former Cigarettes 0.5 50 Q uit: 07/2018 Smokeless Tobacco: Never Comments:quit after fall/rib fractures Alcohol Use Standard Drinks/Week Comments Yes 0 (1 standard drink = 0.6 oz pure alcohol) 2 glasses of wine every other night PHQ-2 Answer Date Recorded PHQ Adult Total Score 0 03/31/2022 Hunger Vital Sign Answer Date Recorded Within the past 12 months, y ou worried that your food would run out before you got the money to buy more. Never true 08/09/19 23 Within the past 12 months, t he food you bought just didn't last and you didn't have money to get more. Never true 08/08/2022 Sex and Gender Information Value Date Recorded Sex Assigned at Female 06/10/2018 11:09 AM EDT Gender Identity Female 06/10/2018 11:09 AM EDT Sexual Orientation Straight 06/10/2018 11 :09 AM EDT Job Start Date Occupation Industry Not on file Not on file Not on file documented as of this encounter Miscellaneous Notes * Telephone Encounter - Simon Burch MD - 03/20/2023 9:12 AM ESTSigned Prescriptions: Disp Refills Atorvastatin Calcium 20 MG Oral Tablet (Li*90 Tab*1 Sig: Take 1 Tablet by mouth daily. Authorizing Provider: ANURADHA ARROYO Ordering User: ALYSSIA LIM clonazePAM 0.5 MG Oral Tablet (KlonoPIN) 30 Tab*0 Sig: TAKE 1 TABLET BY MOUTH AT BEDTIME FOR RESTLESS LEG SYNDROME/INSOMNIA Authorizing Provider: SIMON BURCH * Telephone Encounter - Anuradha Arroyo PA-C - 03/20/2023 8:32 AM ESTPending Prescriptions: Disp Refills clonazePAM 0.5 MG Oral Tablet (KlonoPIN) 30 Tab*0 Sig: TAKE 1 TABLET BY MOUTH AT BEDTIME FOR RESTLESS LEG SYNDROME/INSOMNIA Signed Prescriptions: Disp Refills Atorvastatin Calcium 20 MG Oral Tablet (Li*90 Tab*1 Sig: Take 1 Tablet by mouth daily. Authorizing Provider: ANURADHA ARROYO Ordering User: ALYSSIA LIM * Telephone Encounter - Alyssia Lim [facility] - 03/20/2023 7:02 AM EST Pending Prescriptions: Disp Refills clonazePAM 0.5 MG Oral Tablet (KlonoPIN) 30 Tab*0 Sig: TAKE 1 TABLET BY MOUTH AT BEDTIME FOR RESTLESS LEG SYNDROME/INSOMNIA Signed Prescriptions: Disp Refills Atorvastatin Calcium 20 MG Oral Tablet (Li*90 Tab*1 Sig: Take 1 Tablet by mouth daily. Authorizing Provider: ANURADHA ARROYO Ordering User: ALYSSIA LIM * Telephone Encounter - Alyssia Lim [facility] - 03/20/2023 7:01 AM EST I have reviewed the patients controlled substance dispensing history in the Prescription Drug Monitoring Program in compliance with the [facility] regulations before prescribing a controlled substance. PDMP checked on 03/20/2023. Pending Prescriptions: Disp Refills clonazePAM 0.5 MG Oral Tablet (KlonoPIN) *30 Tab*0 Sig: TAKE 1 TABLET BY MOUTH AT BEDTIME FOR RESTLESS LEG SYNDROME/INSOMNIA Last Visit: 03/05/2023 (in office), Visit date not found (telemedicine) Next Visit: Visit date not found Date medication was last filled: 02/20 Date medication is due for refill: 03/21 Pharmacy: [id number] Is this request for a controlled substance? Yes and Urine Drug Screen Not completed Toxicology results: No results found. However, due to the size of the patient record, not all encounters were searched.Please check Results Review for a complete set of results. Please approve if appropriate. Thank you, Alyssia Lim, PharmD. Clinical Pharmacist Centralized [facility] Pharmacy Services ([facility]) (formerly Telepharmacy) 03/20/2023, 7:01 AM documented in this encounter Plan of Treatment Upcoming Encounters Date Type Department Care Team (Late st Contact Info) Description 04/28/2023 11:00 AM EST Office Visit Family Practice [address] [place] [address] Amy Lew MD [address] [place] [address] [place] [id number] 06/10/2023 10:40 AM EDT Office Visit Neurology [address] [place] [address] Mine Wade PA-C [address] [place] [address] [place] [address] 06/26/2023 10:15 AM EDT Office Visit Dermatology [address] [place] [address] Jayro Barker MD [address] [place] [address] 12/17/2023 2:00 PM EDT Office Visit Hematology/Oncology [address] [place] [address] Dee Dee Ayala CRNP [address] [place], [place] [address] [address] 12/21/2023 11:00 AM EDT Imaging Radiology, [facility] [address] [facility] [place] [address] 01/12/2024 12:30 PM EST Office Visit [facility] Disorders Ctr [facility] [address] [place] [phone] Kerri Martin CRNP [address] [place] [address] 01/14/2024 9:00 AM EST Office Visit General Surgery, [facility] [address] [place] [address] Belkis Garcia MD [address] [place] [id number] Health Maintenance Due Date Last Done Comments Cologuard 1993 Sigmoidoscopy 1993 Fecal Occult Blood Test 11/18/2008 11/19/2007, 04/28 Zoster Vaccines (2 of 3) 12/29/2011 11/03/2011 Depression Screening 03/31/2023 03/31/2022 Mammogram 07/05/2023 07/04/2022, 06/23, 07/01/2021, Additional history exists GFR 02/28/2024 02/27/2023, 07/2022, 06/02/2022, Additional history exists Albumin/Creatinine Ratio 09/26/2024 09/26/2021 Lipid Panel 09/18/2027 09/17/2022, 02/25, 09/10/2021, Additional history exists DXA Scan 12/12/2027 12/11/2020, 11/23, 11/22/2018, Additional history exists Colonoscopy 12/16/2032 12/16/2022, 11/24, 07/05/2013, Additional history exists Colorectal Cancer Screening 12/16/2032 DTaP,Tdap,and Td Vaccines (6 - Td or Tdap) 02/12/2033 02/12/2023, 03/16/2012, 03/11/2002, Additional history exists Influenza Vaccine (FLU shot) Completed 04/2022, 11/19/2021, 11/02/2020, Additional history exists Pneumococcal Vaccine: 65+ Years Completed 02/12/2023, 03/21/2015, 10/17/2013, Additional history exists COVID-19 Vaccine Completed 02/26/2023, , 05/02/2020, Additional history exists GARDASIL-HPV IMMUNIZATION SERIES Aged Out No longer eligible based on patient's age to complete this topic Hepatitis B Aged Out No longer eligi ble based on patient's age to complete this topic MENINGOCOCCAL (MENACTRA/MENVEO) Aged Out No longer eligible based on patient's age to complete this topic documented as of this encounter Medical Devices Not on filedocumented as of this encounter Visit Diagnoses Diagnosis Dyslipidemia, goal LDL below 160 Other and unspecified hyperlipidemia Primary insomnia Persistent disorder of initiating or maintaining sleep Periodic limb movement sleep disorder Periodic limb movement disorder documented in this encounter Advance Directives Documents on File Type Date Recorded Patient Ramp Manager Expl anation Advance Directives and Living Will 03/13/2022 ADVANCE DIRECTIVE / LIVING WILL Power of Malware Analyst 03/13/2022 POWER OF A TTORNEY Care Teams Fitness Consultant Relationship Specialty Start Date End Date Anuradha Arroyo PA-C [address] [place] [id number] PCP - General Physician Quality Control Coordinator 12/12/20 documented as of this encounter
--- OUTSIDE RECORDS SUMMARY | 2023-03-24 18:15 | External Medical Summary | Summary of Care ---
Author Name Unknown Organization [facility] Address [address] [place] [address] Phone [phone] Care Team Providers Care Lands Resource Manager Name Role Phone Daniel Menon PA-C Primary Care Provider [phone]- [phone] Reason for Visit * Reason Comments Animal Bite Dog Encounter Details Date Type Department Care Team (Latest Contact Info) Description 03/09/2023 9:30 AM EST Convenient Care Visit [facility] [address] [place] [address] Camelia Stanton PA-C [address] [place] [address] [place] [address] Dog bite, initial encounter*; Cellulitis of left upper extremity Allergies Active Allergy Reactions Criticality Noted Date Comments Elemental Sulfur 05/23/2015 Erythromycin Base 06/29/2000 hives Penicillins 06/29/2000 Augmentin hives Sulfa Antibiotics 09/17/1999 Hives documented as of this encounter (statuses as of 03/09/2023) Medications Medication Sig Dispensed Refills Start Date [...] by mouth in the morning. 0 Active Atorvastatin Calcium 20 MG Oral Tablet (Lipitor)Indication s:Dyslipidemia, goal LDL below 160 Take 1 Tablet (20 mg) by mouth in the morning. 90 Tablet 3 01/06/2022 Active Additional Information Patient taking differently:20 mg Oral Daily(Non-Specified), Takes at night, Reported on 12/12/2022 Letrozole 2.5 MG Oral Tablet (Femara)Indications :Malignant neoplasm of right female breast, unspecified estrogen receptor status, unspecified site of breast (HCC) Take 1 Tablet by mouth in the morning. 90 Tablet 3 06/05/2022 Active amLODIPine Besylate 5 MG Oral Tablet (Norvasc)Indication s:HTN, goal below 140/90 Take 1 Tablet by mouth in the morning. 90 Tablet 3 08/08/2022 Active DULoxetine HCl 60 MG Oral Capsule Delayed Release Particles (Cymbalta)Indicatio ns:Spinal stenosis of lumbar region with neurogenic claudication [...] a month. 90 Capsule 1 02/13/2023 Active clonazePAM 0.5 MG Oral Tablet (KlonoPIN)Indicatio ns:Primary insomnia,Periodic limb movement sleep disorder TAKE 1 TABLET BY MOUTH AT BEDTIME FOR RESTLESS LEG SYNDROME/INSOMNIA 30 Tablet 0 02/20/2023 Active Doxycycline Hyclate 100 MG Oral CapsuleIndications: Dog bite, initial encounter,Celluliti s of left upper extremity Take 1 Capsule by mouth in the morning and 1 Capsule before bedtime. Do all this for 10 days. Until gone.. 20 Capsule 0 03/09/2023 03/19/2023 Active metroNIDAZOLE 500 MG Oral Tablet (Flagyl)Indications :Dog bite, initial encounter,Celluliti s of left upper extremity Take 1 Tablet by mouth in the morning and 1 Tablet at noon and 1 Tablet before bedtime. Do all this for 7 days. 21 Tablet 0 03/09/2023 03/16/2023 Active documented as of this encounter (statuses as of 03/09/2023) Active Problems Problem Noted Date Diagnosed Date [...] Nodule of left lung 03/13/2008 Overview: Stable [id number] imaging ADVANCE DIRECTIVE INFORMATION 07/15/2004 Overview: No, Advance Directive brochure given to patient. DIVERTICULOSIS OF COLON 12/29/2003 HTN, goal below 140/90 11/28/2003 HISTORY OF TOBACCO USE Chronic sinusitis documented as of this encounter (statuses as of 03/09/2023) Resolved Problems Problem Noted Date Diagnosed Date [...] as of this encounter (statuses as of 03/09/2023) Immunizations Name Administration Dates Next Due COVID-19 mRNA, LNP-s, No Pre serve, 2-Dose Series (mysportgroup) 12/13/2020,05/02/2020,04/04/2020 COVID-19, MRNA-LNP, 23-24, P F, 30 MCG/0.3 mL, 12 YRS AND ABOVE, IM ([employer]-Comirnat) 02/26/2023 H1N1 2009 Influenza, IM 01/10/2009,01/08/2009 H1N1 2009 Influenza, Intranasal 01/10/2009 HEP A - Hepatitis A (Adult > 18 yrs) 03/12/2006 Pneumococcal Conjugate Vacc, 13 Valent (Prevnar) 03/21/2015 Pneumococcal Conjugate Vacci ne, 20-valent ([id number]) 02/12/2023 Pneumococcal Polysaccharide PPV23 (Pneumovax) 10/17/2013,06/12/2008 RSV [...] on file documented as of this encounter Last Filed Vital Signs Vital Sign Reading Time Taken Comments Blood Pressure 124/74 03/09/2023 9:42 AM EST Pulse 96 03/09/2023 9:42 AM EST Temperature 36.8 C (98.3 F) 03/09/2023 9:42 AM ES T Respiratory Rate 18 03/09/2023 9:42 AM EST Oxygen Saturation 96% 03/09/2023 9:42 AM EST Inhaled Oxygen Concentration - - Weight 69.5 kg (153 lb 3.2 oz) 03/09/2023 9:42 A M EST Height - - Body Mass Index 24.04 03/05/2023 8:05 AM EST documented in this encounter Patient Instructions * Patient Instructions* Camelia Stanton PA-C - 03/09/2023 10:09 AM EST You were prescribed doxycyline. Take medication as directed. This drug may make you sunburn more easily. Use care if you will be in the sun. control pills and other hormone-based control may not work as well to prevent . Use some other kind of control also like a condom when taking this drug. DO NOT TAKE if or trying to become . It is best to avoid taking this drug at the same time as milk, dairy, or other products with calcium. This drug may not work as well. Do not take bismuth (Pepto-Bismol), calcium, iron, magnesium, zinc, multivitamins with minerals, colestipol, cholestyramine, didanosine, or antacids within 2 hours of this drug. NO ALCOHOL when on metronidazole Take all antibiotic even if symptoms improve sooner. Stopping early increases risk of antibiotic resistance and returning infection. Return if erythema not improving after 36 hours. Apply cold compresses and elevate as needed for comfort. Try over the counter nonsteroidal antiinflammatory drugs such as ibuprofen or naproxen to reduce pain. Use over the counter Zyrtec (certirzine) to help with itching. You can use otc steroid cream on area to also help with itch Hot showers can make the itch worse. Follow-up sooner with PCP sooner or return to be evaluated with any change/worsening symptoms including worsening redness, warmth, fevers, chills or if symptoms persist. If any severe/acute worsening of symptoms develop, go to the ED. documented in this encounter Progress Notes * Camelia Stanton PA-C - 03/09/2023 10:01 AM EST Lulu Pantoja is a 72 year old female who presents with a dog bite on the left hand from a domestic dog. Animal is up to date on rabies vaccine? yes Animal could be captured. The medical billing manager was contacted. HPI: The bite occurred 3 day(s) ago at home. The animal was well-appearing and the bite was from startling the dog awake. Current symptoms include: pain, swelling, and erythema Patient started self-treatment? Yes, describe: bacitracin and washed it The last tetanus shot was 1 year ago. The patient's tetanus status is up to date. Patient was accompanied by Self. 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 06/01/2017 Past Surgical History: Procedure Laterality Date BX LYMPH NODE DEEP AXIL Right 11/03/2018 BIOPSY LYMPH NODE DEEP AXILLARY OPEN performed by Belkis Garcia MD at OR [facility] COLONOSCOPY, DIAGNOSTIC (RECTUM) 03/28/09 diverticulosis, repeat in 5 years COLONOSCOPY, DIAGNOSTIC (RECTUM) 07/05/2013 collagenous colitis/COLONOSCOPY FLEXIBLE PROXIMAL DIAGNOSTIC performed by Delgado Flynn MD at ENDOSCOPY [facility] COLONOSCOPY, DIAGNOSTIC (RECTUM) 12/16/2022 COLONOSCOPY FLEXIBLE PROXIMAL DIAGNOSTIC performed by Dariusz Molina MD at ENDOSCOPY [facility] CYSTOSCOPY 07/25/2013 DILATION AND CURETTAGE (D&C) 1997 [facility] IDENTIFY SENTINEL NODE, RADIOACTIVE TRACER Right 11/03/2018 INJECTION PROCEDURE FOR IDENTIFICATION SENTINEL NODE performed by Belkis Garcia MD at OR [facility] INJECT DX/THER SUBSTANCE INTERLAMINAR LUMBAR/SACRAL W IMAGE GUIDE 07/06/2017 INJECTION SPINE LUMBAR OR SACRAL performed by Cirilo Merlene Leija, DO at OR [facility] INJECT DX/THER SUBSTANCE INTERLAMINAR LUMBAR/SACRAL W IMAGE GUIDE 10/01/2017 INJECTION SPINE LUMBAR OR SACRAL performed by Cirilo Leija, DO at OR [facility] INJECT DX/THER SUBSTANCE INTERLAMINAR LUMBAR/SACRAL W IMAGE GUIDE 06/11/2020 INJECTION SPINE LUMBAR OR SACRAL performed by Cirilo Leija, DO at OR [facility] INJECT DX/THER SUBSTANCE INTERLAMINAR LUMBAR/SACRAL W IMAGE GUIDE 09/13/2020 INJECTION SPINE LUMBAR OR SACRAL performed by Cirilo Leija, DO at OR [facility] INJECT DX/THER SUBSTANCE INTERLAMINAR LUMBAR/SACRAL W IMAGE GUIDE 06/13/2021 INJECTION SPINE LUMBAR OR SACRAL performed by Cirilo Tonny Leija, DO at OR [facility] INJECT DX/THER SUBSTANCE INTERLAMINAR LUMBAR/SACRAL W IMAGE GUIDE 10/30/2021 INJECTION SPINE LUMBAR OR SACRAL performed by Cirilo Leija DO at OR [facility] L-/S-SPINE PARAVERTEBRAL FACET INJ,1 LEVEL 09/26/2019 L-/S-SPINE PARAVERTEBRAL FACET INJ, 1 LEVEL performed by Cirilo Leija DO at OR [facility] L-/S-SPINE PARAVERTEBRAL FACET INJ,1 LEVEL 10/06/2019 L-/S-SPINE PARAVERTEBRAL FACET INJ, 1 LEVEL performed by Cirilo Leija DO at OR [facility] L-/S-SPINE PARAVERTEBRL FACET INJ,2 LEVELS 09/26/2019 L-/S-SPINE PARAVERTEBRAL FACET INJ, 2 LEVELS performed by Cirilo Leija DO at OR [facility] L-/S-SPINE PARAVERTEBRL FACET INJ,2 LEVELS 10/06/2019 L-/S-SPINE PARAVERTEBRAL FACET INJ, 2 LEVELS performed by Cirilo Leija DO at OR [facility] LUMBAR / SACRAL EPIDURAL, SINGLE LEVEL 04/02/2022 INJECTION TRANSFORAMINAL EPIDURAL LUMBAR OR SACRAL performed by Cirilo Leija DO at OR [facility] MASTECTOMY, PARTIAL Right 09/29/2018 MASTECTOMY PARTIAL performed by Belkis Garcia MD at OR [facility] SACROILIAC JOINT INJECT W/GUIDANCE 12/28/2017 INJECTION SACROILIAC JOINT performed by Cirilo Leija DO at OR [facility] SACROILIAC JOINT INJECT W/GUIDANCE 08/18/2019 INJECTION SACROILIAC JOINT performed by Cirilo Leija DO at OR [facility] Social History Tobacco Use Smoking status: Former Packs/day: 0.50 Years: 50.00 Additional pack years: 0.00 Total pack years: 25.00 Types: Cigarettes Quit date: 07/2018 Years since quittin.6 Smokeless tobacco: Never Tobacco comments: quit after fall/rib fractures Substance Use Topics Alcohol use: Yes Comment: 2 glasses of wine every other night Vaping/E-Cigarette Use Vaping/E-Cigarette Use Never User Vaping/E-Cigarette Substances Vaping/E-Cigarette Devices Current Outpatient Medications Medication Sig Dispense Refill MELATONIN 1 MG PO TABS one at bedtime CLARITIN 10 MG PO TABS One pill by mouth once a day VITAMIN D3 2000 UNITS PO CAPS Take 1 capsule daily. 90 Cap 1 Aspirin 81 MG Tablet Take 1 Tablet by mouth in the morning. Cyanocobalamin (VITAMIN B-12) 1000 MCG Tablet Take 1 Tablet by mouth in the morning. Multiple Vitamins-Minerals (OCUVITE ADULT 50+) Capsule Take 1 Capsule by mouth in the morning. Atorvastatin Calcium 20 MG Oral Tablet (Lipitor) Take 1 Tablet (20 mg) by mouth in the morning. (Patient taking differently: Take 1 Tablet by mouth daily. Takes at night) 90 Tablet 3 Letrozole 2.5 MG Oral Tablet (Femara) Take 1 Tablet by mouth in the morning. 90 Tablet 3 amLODIPine Besylate 5 MG Oral Tablet (Norvasc) Take 1 Tablet by mouth in the morning. 90 Tablet 3 DULoxetine HCl 60 MG Oral Capsule Delayed Release Particles (Cymbalta) TAKE 1 CAPSULE BY MOUTH EVERY MORNING. DO NOT CUT, CRUSH, OR CHEW (Patient taking differently: at bedtime.) 30 Capsule 5 Womens One Daily Oral Tablet Take by mouth. Budesonide 3 MG Oral Capsule Delayed Release Particles (Entocort EC) take 3 tablets by mouth daily for a month then 2 daily for a month then 1 daily for a month. 90 Capsule 1 clonazePAM 0.5 MG Oral Tablet (KlonoPIN) TAKE 1 TABLET BY MOUTH AT BEDTIME FOR RESTLESS LEG SYNDROME/INSOMNIA 30 Tablet 0 Doxycycline Hyclate 100 MG Oral Capsule Take 1 Capsule by mouth in the morning and 1 Capsule beforebedtime. Do all this for 10 days. Until gone.. 20 Capsule 0 metroNIDAZOLE 500 MG Oral Tablet (Flagyl) Take 1 Tablet by mouth in the morning and 1 Tablet at noon and 1 Tablet before bedtime. Do all this for 7 days. 21 Tablet 0 No current facility-administered medications for this visit. Review of patient's allergies indicates: Allergen Reactions Elemental Sulfur Erythromycin Base hives Penicillins Augmentin hives Sulfa Antibiotics Hives Family History Problem Relation Age of Onset Diabetes Mother Heart Disorder Mother Arthritis Mother Cancer Mother skin - type unknown Stroke Mother Thyroid Disorder Mother Stroke Father Hypertension Father Ear Problems Father Heart disease Brother Emphysema Grandfather (Maternal) No Known Problems Brother OBJECTIVE: BP 124/74 | Pulse 96 | Temp 36.8 C (98.3 F) (Tympanic) | Resp 18 | Wt 69.5 kg (153 lb 3.2 oz) |LMP 06/23/2002 | SpO2 96% | BMI 24.04 kg/m | BSA 1.81 m General: alert, no distress, cooperative, comfortable HEENT: normocephalic, atraumatic, Supple without masses or lymphadenopathy, sclera and conjuctiva clear bl Heart: regular rate & rhythm, no murmurs and no gallops Lungs: no chest wall tenderness, lungs clear to auscultation Abdomen: abdomen soft, non-tender and normal bowel sounds Extremities: no edema, no clubbing, no cyanosis Neuro Exam: alert & oriented x 3 with fluent speech, no focal motor/sensory deficits, gait normal Skin: left hypothenar eminence with wound with advanced erythema, induration, pain and swelling that extends up the arm with streaking ASSESSMENT/PLAN dog bite Patient referred to the Emergency Department for rabies prophylaxis-refused Dog bite, initial encounter (Primary) - Doxycycline Hyclate 100 MG Oral Capsule; Take 1 Capsule by mouth in the morning and 1 Capsule before bedtime. Do all this for 10 days. Until gone.. - metroNIDAZOLE 500 MG Oral Tablet (Flagyl); Take 1 Tablet by mouth in the morning and 1 Tablet at noon and 1 Tablet before bedtime. Do all this for 7 days. Cellulitis of left upper extremity - Doxycycline Hyclate 100 MG Oral Capsule; Take 1 Capsule by mouth in the morning and 1 Capsule before bedtime. Do all this for 10 days. Until gone.. - metroNIDAZOLE 500 MG Oral Tablet (Flagyl); Take 1 Tablet by mouth in the morning and 1 Tablet at noon and 1 Tablet before bedtime. Do all this for 7 days. Patient has allergies to augmentin and bactrim. Also with colitis and is scheduled for back surgerythis week. Patient to begin doxy and flagyl, and to contact surgeon. Care instructions given. Additional instructions per patient instructions attached. Follow up with PCP in 3 days if symptoms persist. Reasons to go to ED discussed with patient including but not limited to development of acute or severe symptoms. Patient agrees with the plan and demonstrates verbal understanding. Patient stable at the time of discharge. Patient Instructions You were prescribed doxycyline. Take medication as directed. This drug may make you sunburn more easily. Use care if you will be in the sun. control pills and other hormone-based control may not work as well to prevent . Use some other kind of control also like a condom when taking this drug. DO NOT TAKE if or trying to become . It is best to avoid taking this drug at the same time as milk, dairy, or other products with calcium. This drug may not work as well. Do not take bismuth (Pepto-Bismol), calcium, iron, magnesium, zinc, multivitamins with minerals, colestipol, cholestyramine, didanosine, or antacids within 2 hours of this drug. NO ALCOHOL when on metronidazole Take all antibiotic even if symptoms improve sooner. Stopping early increases risk of antibiotic resistance and returning infection. Return if erythema not improving after 36 hours. Apply cold compresses and elevate as needed for comfort. Try over the counter nonsteroidal antiinflammatory drugs such as ibuprofen or naproxen to reduce pain. Use over the counter Zyrtec (certirzine) to help with itching. You can use otc steroid cream on area to also help with itch Hot showers can make the itch worse. Follow-up sooner with PCP sooner or return to be evaluated with any change/worsening symptoms including worsening redness, warmth, fevers, chills or if symptoms persist. If any severe/acute worsening of symptoms develop, go to the ED. Patient instructed to go to the ER if significant worsening of redness or development of high fevers as would likely need IV antibiotics in that scenario. Patient instructed to contact Primary Care Provider if No improvement in 5 days or symptoms worsen. Contact [facility] if unable to reach Primary Care Provider. All required forms completed. Camelia Stanton PA-C [place] [id number] documented in this encounter Nursing Notes * Leila Forrest LPN - 03/09/2023 9:43 AM EST Lulu Pantoja is a 72 year old female who presents to walk-in clinic today complaining of Chief Complaint Patient presents with Animal Bite Dog Main Symptoms: own dog; up-to-date with vaccines; happened Thursday, dog was sleeping and startled the dog and bit the left hand/palm area. Redness and swelling radiating up the arm. Last Tdap: 02/12/23. Tried: cleansed with soap and water and bacterial cream. Pt accompanied by: self documented in this encounter Plan of Treatment Upcoming Encounters Date Type Department Care Team (Late st Contact Info) Description 04/28/2023 11:00 AM EST Office Visit Family Practice [facility] [address] [facility] [place] [address] Amy Lew MD [address] [place] [id number] 06/10/2023 10:40 AM EDT Office Visit Neurology [facility] [address] [place] [address] Mine Wade PA-C [address] [place] [address] 06/26/2023 10:15 AM EDT Office Visit Dermatology [facility] [address] [place] [address] Jayro Barker MD [address] [place] [address] 12/17/2023 2:00 PM EDT Office Visit Hematology/Oncology [facility] [address] [place] [address] Dee Dee Ayala CRNP [address] [facility] [place] [address] 12/21/2023 11:00 AM EDT Imaging Radiology, [place] [id number] [facility] [place] [address] 01/12/2024 12:30 PM EST Office Visit [facility] [address] [facility] [place] [id number] Kerri Martin CRNP [address] [facility] [place] [address] 01/14/2024 9:00 AM EST Office Visit General Surgery, [facility] [address] [place] [address] Belkis Garcia MD [address] [place] [address] Health Maintenance Due Date Last Done Comments [...] as of this encounter Visit Diagnoses Diagnosis Dog bite, initial encounter- Primary Cellulitis of left upper extremity Cellulitis and abscess of upper arm and forearm documented in this encounter Advance Directives Documents on File Type Date Recorded Patient Sub Prior Expl anation Advance Directives and Living Will 03/13/2022 ADVANCE DIRECTIVE / LIVING WILL Power of Visual Education Director 03/13/2022 POWER OF A TTORNEY Care Teams Lands Resource Manager Relationship Specialty Start Date End Date Daniel Menon PA-C [address] [facility] [place] [address] PCP - General Physician Field Adjuster 12/12/20 documented as of this encounter"
--- OUTSIDE RECORDS SUMMARY | 2023-03-24 18:15 | External Medical Summary | Summary of Care ---
Author Name Unknown Organization [facility] Address [address] [place] [address] Phone [phone] Care Team Providers Care Carroter Name Role Phone Daniel Menon PA-C Primary Care Provider +1- [phone] Encounter Details Date Type Department Care Team (Late st Contact Info) Description 12/10/2022 Telephone OR [facility], Operating Room [facility] [address] [place] [phone] Dariusz Molina MD [address] [place] [address] Allergies Active Allergy Reactions Criticality Noted Date Comments Elemental Sulfur 05/23/2015 Erythromycin Base 06/29/2000 hives Penicillins 06/29/2000 Augmentin hives Sulfa Antibiotics 09/17/1999 Hives documented as of this encounter (statuses as of 03/11/2023) Medications Medication Sig Dispensed Refills Start Date [...] the morning. 90 Tablet 3 08/08/2022 Active documented as of this encounter (statuses as of 03/11/2023) Active Problems Problem Noted Date Diagnosed Date [...] Nodule of left lung 03/13/2008 Overview: Stable [id number] imaging ADVANCE DIRECTIVE INFORMATION 07/15/2004 Overview: No, Advance Directive brochure given to patient. DIVERTICULOSIS OF COLON 12/29/2003 HTN, goal below 140/90 11/28/2003 HISTORY OF TOBACCO USE Chronic sinusitis documented as of this encounter (statuses as of 03/11/2023) Resolved Problems Problem Noted Date Diagnosed Date [...] as of this encounter (statuses as of 03/11/2023) Immunizations Name Administration Dates Next Due COVID-19 mRNA, LNP-s, No Pre serve, 2-Dose Series ([employer]) 12/13/2020,05/02/2020,04/04/2020 H1N1 2009 Influenza, IM 01/10/2009,01/08/2009 H1N1 2009 Influenza, Intranasal 01/10/2009 HEP A - Hepatitis A (Adult > 18 yrs) 03/12/2006 Pneumococcal Conjugate Vacc, 13 Valent (Prevnar) 03/21/2015 Pneumococcal Polysaccharide PPV23 (Pneumovax) 10/17/2013,06/12/2008 Seasonal Influenza, PF, 6 M & above, IM , (FluLaval or Fluzone) 12/10/2017,12/23/2016,12/02/2013,12/20,11/03/2011,11/04/2010,11/13/2009 ,02/13/2009,12/09/2007,01/04/2007,1102/2005,01/01/2005,03/18/2004, 3,01/14/2002,02/09/2001 Seasonal Influenza, Quadriva lent Hd (Fluzone Hd) 11/25/2022,11/02/2020 Seasonal Influenza, Quadriva lent Hd, 65+ Yrs 11/19/2021 Seasonal Influenza, Quadriva lent, No Preserve, IM 11/05/2015,12/27/2014 Seasonal Influenza, Split, I IV3, With Preserve, Inj 12/02/2013,12/20/2012,11/03/2011,11/04,11/13/2009,02/13/2009,12/09/2007 ,01/04/2007,12/24/2005 Seasonal Influenza, Trivalen t, Adjuvanted, 65+ yrs 11/23/2019,11/16/2018 TD, Preservative Free 03/11/2002 TDAP (age 10 and older)(Boostrix) 03/16/2012, Varicella Zoster Vaccine (Adult) 11/03/2011 documented as [...] encounter Miscellaneous Notes * Telephone Encounter - Alejandra Mccullough RN - 12/10/2022 2:35 PM EDT Attempted to call for pre anesthesia evaluation. No answer. Voice mail left requesting return call documented in this encounter Plan of Treatment Upcoming Encounters Date Type Department Care Team (Late st Contact Info) Description 04/28/2023 11:00 AM EST [facility] [place] [address] [place] [address] Amy Lew MD 200 [facility] [place] [address] 06/10/2023 10:40 AM EDT Office Visit Neurology [facility] [address] [place] [address] Mine Wade PA-C [address] [facility] [place] [address] 06/26/2023 10:15 AM EDT Office Visit Dermatology [facility] [address] [facility] [place] [address] Jayro Barker MD [address] [place] [address] 12/17/2023 2:00 PM EDT Office Visit Hematology/Oncology [facility] [address] [facility] [place] [address] Dee Dee Ayala CRNP [address] [place] [address] 12/21/2023 11:00 AM EDT Imaging Radiology, [address] [place] [address] 01/12/2024 12:30 PM EST Office Visit Sleep Disorders [facility] [address] [place] [phone] Kerri Martin CRNP [facility] [address] 01/14/2024 9:00 AM EST Office Visit General Surgery, [facility] [address] [facility] [place] [address] Belkis Garcia MD [address] [facility] [place] [address] Health Maintenance Due Date Last Done Comments [...] Not on filedocumented as of this encounter Additional Health Concerns Infection Onset Date Last Indicated Resolved Time C. difficile Rule-Out 02/12/2023 02/12/20232022 11:07 PM EST Gastrointestinal Rule-Out 02/12/2023 02/12/2023 6:16 PM EST documented as of this encounter Advance Directives Documents on File Type Date Recorded Patient Cargo Mate Expl anation Advance Directives and Living Will 03/13/2022 ADVANCE DIRECTIVE / LIVING WILL Power of Honey Producer 03/13/2022 POWER OF A TTORNEY Care Teams Carroter Relationship Specialty Start Date End Date Daniel Menon PA-C [address] [place] [address] [place] [address] PCP - General Physician End Trimmer 12/12/20 documented as of this encounter
--- OUTSIDE RECORDS SUMMARY | 2023-03-24 18:16 | External Medical Summary | Summary of Care ---
Author Name Unknown Organization [facility] Address [address] [place] [address] Phone [phone] Care Team Providers Care Fire Extinguisher Mechanic Name Role Phone Daniel Menon PA-C Primary Care Provider +1- [phone] Reason for Visit * Reason Onset Date Comments Forms Request 03/05/2023 Encounter Details Date Type Department Care Team (Late st Contact Info) Description 03/05/2023 Telephone General Internal Medicine [facility] 200 [facility] [place] [address] Daniel Menon PA-C [facility] [place] [address] Forms Request Allergies Active Allergy Reactions Criticality Noted Date Comments Elemental Sulfur 05/23/2015 Erythromycin Base 06/29/2000 hives Penicillins 06/29/2000 Augmentin hives Sulfa Antibiotics 09/17/1999 Hives documented as of this encounter (statuses as of 03/05/2023) Medications Medication Sig Dispensed Refills Start Date [...] LEG SYNDROME/INSOMNIA 30 Tablet 0 02/20/2023 Active documented as of this encounter (statuses as of 03/05/2023) Active Problems Problem Noted Date Diagnosed Date [...] Nodule of left lung 03/13/2008 Overview: Stable [id number] imaging ADVANCE DIRECTIVE INFORMATION 07/15/2004 Overview: No, Advance Directive brochure given to patient. DIVERTICULOSIS OF COLON 12/29/2003 HTN, goal below 140/90 11/28/2003 HISTORY OF TOBACCO USE Chronic sinusitis documented as of this encounter (statuses as of 03/05/2023) Resolved Problems Problem Noted Date Diagnosed Date [...] as of this encounter (statuses as of 03/05/2023) Immunizations Name Administration Dates Next Due COVID-19 mRNA, LNP-s, No Pre serve, 2-Dose Series ([employer]) 12/13/2020,05/02/2020,04/04/2020 COVID-19, MRNA-LNP, 23-24, P F, 30 MCG/0.3 mL, 12 YRS AND ABOVE, IM (PFIZER-Comirnaty) 02/26/2023 H1N1 2009 Influenza, IM 01/10/2009,01/08/2009 H1N1 2009 Influenza, Intranasal 01/10/2009 HEP A - Hepatitis A (Adult > 18 yrs) 03/12/2006 Pneumococcal Conjugate Vacc, 13 Valent (Prevnar) 03/21/2015 Pneumococcal Conjugate Vacci ne, 20-valent ([id number]) 02/12/2023 Pneumococcal Polysaccharide PPV23 (Pneumovax) 10/17/2013,06/12/2008 RSV [...] encounter Miscellaneous Notes * Telephone Encounter - Eda Shelley LPN - 03/05/2023 10:49 AM EST Pre op exam office note faxed to [facility]. Fax confirmation received from both. Eda Shelley LPN documented in this encounter Plan of Treatment Upcoming Encounters Date Type Department Care Team (Late st Contact Info) Description 04/28/2023 11:00 AM EST Office Visit Family Practice [facility] [place] [address] [place] [address] Amy Lew MD [address] [place] [address] 06/10/2023 10:40 AM EDT Office Visit Neurology [facility] [place] [address] [place] [address] Mine Wade PA-C [address] [place] [address] 06/26/2023 10:15 AM EDT Office Visit Dermatology [facility] [address] [place] [address] [address] Jayro Barker MD [address] [place] [address] 12/17/2023 2:00 PM EDT Office Visit Hematology/Oncology [facility] 200 [facility] [place] [address] Dee Dee Ayala CRNP [address] [place] [address] 12/21/2023 11:00 AM EDT Imaging Radiology, [facility] [address] [facility] [place] [address] 01/12/2024 12:30 PM EST Office Visit Sleep Disorders [facility] [address] [place] [phone] Kerri Martin CRNP [address] [place] [address] 01/14/2024 9:00 AM EST Office Visit General Surgery, [facility] [address] [place] [address] Belkis Garcia MD [address] [place] [address] Health Maintenance Due Date Last Done Comments [...] Not on filedocumented as of this encounter Advance Directives Documents on File Type Date Recorded Patient Auto Body Detailer Expl anation Advance Directives and Living Will 03/13/2022 ADVANCE DIRECTIVE / LIVING WILL Power of Secretary Office Clerk 03/13/2022 POWER OF A TTORNEY Care Teams Fire Extinguisher Mechanic Relationship Specialty Start Date End Date Daniel Menon PA-C [address] [place] [address] [place] [address] PCP - General Physician Oil Sales And Service Rep 12/12/20 documented as of this encounter
--- OUTSIDE RECORDS SUMMARY | 2023-03-24 18:16 | External Medical Summary | Summary of Care ---
Author Name Unknown Organization [facility] Address [address] [place] [address] Phone [phone] Care Team Providers Care Technical Director Name Role Phone Daniel Menon PA-C Primary Care Provider +1- [phone] Reason for Visit * Reason Comments pre-op exam Pre op exam. 03/13/19 23, Dr. Rothman U. Encounter Details Date Type Department Care Team (Late st Contact Info) Description 03/05/2023 8:20 AM EST Office Visit General Internal Medicine [facility] 200 [facility] [place] [address] Daniel Menon PA-C [facility] [place] [address] Preop examination*; Lumbar degenerative disc disease; Major depressive disorder with single episode, in partial remission (HCC); Dyslipidemia, goal LDL below 160; Sleep apnea, obstructive; HTN, goal below 140/90; Sensorineural hearing loss (SNHL) of both ears; Anxiety state; Collagenous colitis Allergies Active Allergy Reactions Criticality Noted Date [...] on 12/12/2022 Letrozole 2.5 MG Oral Tablet (Femara)Indicatio ns:Malignant [...] 02/13/2023 Active clonazePAM 0.5 MG Oral Tablet (KlonoPIN)Indicat ions:Primary insomnia,Periodic limb movement sleep disorder TAKE 1 TABLET BY MOUTH AT BEDTIME FOR RESTLESS LEG SYNDROME/INSOMNI A 30 Tablet 0 02/20/2023 Active Ciprofloxacin HCl 250 MG Oral Tablet (Cipro)Indication s:Acute cystitis without hematuria Take 1 Tablet by mouth in the morning and 1 Tablet before bedtime. Do all this for 3 days. 6 Tablet 0 12/22/2022 03/05/19 24 Discontinued Tugvmsc-Jbllij-Oc ell Pertussis 5-2.5-18.5 LF-MCG/0.5 Suspension Prefilled Syringe (Boostrix)Indicat ions:Need for diphtheria-tetanu s-pertussis (Tdap) vaccine Inject 0.5 mL into a large muscle once for 1 dose. As directed 0.5 mL 0 02/12/2023 03/05/19 24 Discontinued documented as of this encounter [...] Nodule of left lung 03/13/2008 Overview: Stable [id number] imaging ADVANCE DIRECTIVE INFORMATION 07/15/2004 [...] mRNA, LNP-s, No Pre serve, 2-Dose Series ([employer]) 12/13/2020,05/02/2020,04/04/2020 COVID-19, MRNA-LNP, 23-24, P F, 30 MCG/0.3 mL, 12 YRS AND ABOVE, IM (PFIZER-Comirnaty) 02/26/2023 H1N1 2008 Influenza, IM 01/10/2009,01/08/2009 H1N1 2009 Influenza, Intranasal 01/10/2009 HEP A - Hepatitis A (Adult > 18 yrs) 03/12/2006 Pneumococcal Conjugate Vacc, 13 Valent (Prevnar) 03/21/2015 Pneumococcal Conjugate Vacci ne, 20-valent ([id number]) 02/12/2023 Pneumococcal Polysaccharide PPV23 (Pneumovax) 10/17/2013,06/12/2008 RSV Vac., Recomb, Adjuvant, PF,0.5 Ml (Arexvy) 12/12/2022 Seasonal Influenza, PF, 6 M & above, IM , (FluLaval or Fluzone) 12/10/2017,12/23/2016,12/02/2013,12/20,11/03/2011,11/04/2010,11/13/2009 ,02/13/2009,12/09/2007,01/04/2007,11/0 02/2005,01/01/2005,03/18/2004, 3,01/14/2002,02/09/2001 Seasonal Influenza, Quadriva lent Hd (Fluzone [...] 50 Q uit: 07/2018 Smokeless Tobacco: Never Tobacco Cessation:Counseling Given: Not Answered Comments:quit after fall/rib fractures Alcohol Use Standard [...] Sign Reading Time Taken Comments Blood Pressure 128/66 03/05/2023 8:05 AM EST Pulse 90 03/05/2023 8:05 AM EST Temperature 37.3 C (99.1 F) 03/05/2023 8:05 AM ES T Respiratory Rate - - Oxygen Saturation 99% 03/05/2023 8:05 AM EST Inhaled Oxygen Concentration - - Weight 70.1 kg (154 lb 9.6 oz) 03/05/2023 8:05 A M EST Height 170 cm (5' 6.93") 03/05/2023 8:05 AM EST Body Mass Index 24.26 03/05/2023 8:05 AM EST documented in this encounter Progress Notes * Daniel Menon PA-C - 03/05/2023 8:22 AM EST Images from the original note were not included. Pre-Operative Medical Evaluation Procedure Information Type of Surgery: L4-L5 decompression and fusion with possible L5-S1 Referring Physician / Surgeon: Dr. Rothman Date of procedure: 03/13/23 Brief History of Present Illness: 72 y/o female with BRENDA, HLD, HTN, Lumbar DDD, cervical DDD, hearing loss, depression, insomnia, hx breast cancer seen today for preoperative evaluation. Bowels are doing better with budesonide. Using twice daily. Denies chest pain, SOB. All other review of systems reviewed and negative other than mentioned in HPI. 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 (06/01/2017) Lumbar degenerative disc disease (06/01/2017) History of Mohs surgery for squamous cell carcinoma of skin (2017) Primary insomnia (03/12/2017) Asymmetrical right sensorineural hearing loss (11/06/2016) Sensorineural hearing loss (SNHL) of both ears (11/06/2016) Degenerative disc disease, cervical (09/07/2014) Collagenous colitis (10/17/2013) Cyst of right kidney (09/01/2013) Sleep apnea, obstructive (07/12/2012) Dyslipidemia, goal LDL below 160 (11/04/2010) Dyslipidemia, goal to be determined (02/01/2009) Dyslipidemia, goal LDL below 160 (06/12/2008) Nodule of left lung (03/13/2008) ADVANCE DIRECTIVE INFORMATION (07/15/2004) DIVERTICULOSIS OF COLON (12/29/2003) HTN, goal below 140/90 (11/28/2003) Pain in limb (01/31/2003) Dermatitis (09/16/2001) Hand Dermatitis (09/16/2001) HISTORY OF TOBACCO USE Chronic sinusitis Current Medications clonazePAM 0.5 MG Oral Tablet (KlonoPIN), TAKE 1 TABLET BY MOUTH AT BEDTIME FOR RESTLESS LEG SYNDROME/INSOMNIA Budesonide 3 MG Oral Capsule Delayed Release Particles (Entocort EC), take 3 tablets by mouth dailyfor a month then 2 daily for a month then 1 daily for a month. Womens One Daily Oral Tablet, Take by mouth. DULoxetine HCl 60 MG Oral Capsule Delayed Release Particles (Cymbalta), TAKE 1 CAPSULE BY MOUTH EVERY MORNING. DO NOT CUT, CRUSH, OR CHEW (Patient taking differently: HS) amLODIPine Besylate 5 MG Oral Tablet (Norvasc), 5 mg, Oral, Daily(AM) Letrozole 2.5 MG Oral Tablet (Femara), 2.5 mg, Oral, Daily(AM) Atorvastatin Calcium 20 MG Oral Tablet (Lipitor), 20 mg, Oral, Daily(AM) (Patient taking differently: 20 mg, Oral, Daily(Non-Specified), Takes at night ) Multiple Vitamins-Minerals (OCUVITE ADULT 50+) Capsule, 1 Capsule, Oral, Daily(AM) Cyanocobalamin (VITAMIN B-12) 1000 MCG Tablet, 1,000 mcg, Oral, Daily(AM) Aspirin 81 MG Tablet, 81 mg, Oral, Daily(AM) VITAMIN D3 2000 UNITS PO CAPS, Take 1 capsule daily. 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 Past Surgical History: has a past surgical history that includes dilation and curettage (d&c) (1996); Colonoscopy, Diagnostic (Rectum) (03/28/09); Colonoscopy, Diagnostic (Rectum) (07/05/2013); cystoscopy (07/25/2013); Inject Dx/Ther Substance Interlaminar Lumbar/Sacral W Image Guide (07/06/2017); Inject Dx/Ther Substance Interlaminar Lumbar/Sacral W Image Guide (10/01/2017); Sacroiliac Joint Inject w/Guidance (12/28/2017); mastectomy, partial (Right, 09/29/2018); Identify [place] Node, Radioactive Tracer (Right, 11/03/2018); bx lymph node deep axil (Right, 11/03/2018); Sacroiliac Joint Inject w/Guidance (08/18/2019); L-/S-spine Paravertebral facet Inj,1 level (09/26/2019); L-/S-spine Paravertebrl facet Inj,2 levels (09/26/2019); L-/S-spine Paravertebral facet Inj,1 level (10/06/2019); L-/S-spine Paravertebrl facet Inj,2levels (10/06/2019); Inject Dx/Ther Substance Interlaminar Lumbar/Sacral W Image Guide (06/11/2020); Inject Dx/Ther Substance Interlaminar Lumbar/Sacral W Image Guide (09/13/2020); Inject Dx/Ther Substance Interlaminar Lumbar/Sacral W Image Guide (06/13/2021); Inject Dx/Ther Substance Interlaminar Lumbar/Sacral W Image Guide (10/30/2021); Lumbar / Sacral Epidural, single level (04/02/2022); and Colonoscopy, Diagnostic (Rectum) (12/16/2022). Social History: reports that she quit smoking about 4 years ago. Her smoking use included cigarettes. She has a 25.00 pack-year smoking history. She has never used smokeless tobacco. She reports current alcohol use.She reports that she does not use drugs. Family History: family history includes Arthritis in her mother; Cancer in her mother; Diabetes in her mother; Ear Problems in her father; Emphysema in her grandfather (maternal); Heart Disorder in her mother; Heartdisease in her brother; Hypertension in her father; No Known Problems in her brother; Stroke in her father and mother; Thyroid Disorder in her mother. Anesthesia History Type of Anesthesia: General Endotracheal Anesthesia reaction: No History of surgical complications: no Personal history of venous thromboembolic disease: No Physical Exam Vitals: 03/05/23 0805 Temp: 37.3 C (99.1 F) Pulse: 90 SpO2: 99% BP: 128/66 BMI: 24.27 Physical Exam: Constitutional: No acute distress. Head: normocephalic, atraumatic Eyes: PERRL with intact EOM, no scleral icterus, injection, or nystagmus noted. Ears: TM pearly adams bilaterally with light reflex noted without erythema or drainage bilaterally. No tenderness to helix tug. Throat: Pharynx pink without erythema, exudates, or other lesions Cardiovascular: RRR without rubs, murmurs, gallops. Pulmonary: Lungs clear to auscultation without rales, rhonchi, or wheezing. No intercostal retractions. Good air movement. Abdomen: Bowel sounds present x4, soft, nontender. No organomegaly, abdominal bruits, or masses. Neuro: Gait steady without ataxia. CN II-XII grossly intact. P Labs reviewed and are significant for: 02/27/23 CBC, BMP, UA, PT/INR unremarkable Xr chest negative, nodule stable since 2007 EKG by my review is significant for: NSR at 78 Surgical Risk Scoring Revised Cardiac Risk Index (RCRI) High-risk type of surgery (examples include vascular and any open intraperitoneal or intrathoracic procedures): 0=No History of ischemic heart disease (history of myocardial infarction or positive exercise test, current compliant of chest pain considered to be secondary to myocardia ischemia, use of nitrate therapy, or ECG with pathological Q waves; do not count prior coronary revascularization procedure unless one of the other criteria for ischemic heart disease is present): 0=No History of heart failure: 0=No History of cerebrovascular disease: 0=No Diabetes mellitus requiring treatment with insulin: 0=No Preoperative serum creatinine >2.0 mg/dL (177 micromol/L): 0=No Pt has revised cardiac index score of: No Risk Factors- 0.4% (95% CI: 0.1-0.8) Assessment and Plan Preop examination Can proceed as scheduled. Low risk. Will CC. Dr. Rothman and [facility] anesthesia. Lumbar degenerative disc disease Plan as above. Major depressive disorder with single episode, in partial remission (HCC) Cymbalta Dyslipidemia, goal LDL below 160 Lipitor Sleep apnea, obstructive HTN, goal below 140/90 Controlled. Norvasc Sensorineural hearing loss (SNHL) of both ears Stable Anxiety state Cymbalta Collagenous colitis Will continue budesonide taper. Functional Assessment They are able to walk two blocks at a moderate pace. The patient's functional status is adequate (equal to 4 METS). 1 MET: 4 METs: 4-10 METs: Can take care of self, such as eat, dress or use the toilet. Can walk to block or go up a flight of steps. Can do heavy house work. Surgical Risk Assessment Patient is low medical risk for the listed procedure. documented in this encounter Nursing Notes * Eda Shelley LPN - 03/05/2023 8:05 AM EST Chief Complaint Patient presents with pre-op exam Pre op exam. 03/13/2022, Dr. Rothman UJANNA. documented in this encounter Plan of Treatment Upcoming Encounters Date Type Department Care Team (Late st Contact Info) Description 04/28/2023 11:00 AM EST Office Visit Family Practice [facility] [address] [facility] [place] [address] Amy Lew MD 200 [facility] [place] [address] 06/10/2023 10:40 AM EDT Office Visit Neurology [facility] [place] [address] [facility] [place] [address] Mine Wade PA-C 200 [facility] [place] [address] 06/26/2023 10:15 AM EDT Office Visit Dermatology [facility] 200 [facility] [place] [address] Jayro Barker MD [address] [place] [address] 12/17/2023 2:00 PM EDT Office Visit Hematology/Oncology [facility] 200 [facility] [place], [place] [address] Dee Dee Ayala CRNP [address] [place] [address] 12/21/2023 11:00 AM EDT Imaging Radiology, [facility] [address] [facility] [place] [address] 01/12/2024 12:30 PM EST Office Visit Sleep Disorders [facility] [address] [place] [phone] Kerri Martin CRNP [address] [place] [address] 01/14/2024 9:00 AM EST Office Visit General Surgery, [facility] [address] [place] [address] Belkis Garcia MD [address] [place] [address] Health Maintenance Due Date Last Done Comments [...] as of this encounter Visit Diagnoses Diagnosis Preop examination- Primary Preoperative examination, unspecified Lumbar degenerative disc disease Degeneration of lumbar or lumbosacral intervertebral disc Major depressive disorder with single episode, in partial remission (HCC) Dyslipidemia, goal LDL below 160 Other and unspecified hyperlipidemia Sleep apnea, obstructive Obstructive sleep apnea (adult) (pediatric) HTN, goal below 140/90 Unspecified essential hypertension Sensorineural hearing loss (SNHL) of both ears Anxiety state Anxiety state, unspecified Collagenous colitis Other and unspecified noninfectious gastroenteritis and colitis documented in this encounter Advance Directives Documents on File Type Date Recorded Patient Lag Screwer Expl anation Advance Directives and Living Will 03/13/2022 ADVANCE DIRECTIVE / LIVING WILL Power of Security Operations Analyst 03/13/2022 POWER OF A TTORNEY Care Teams Technical Director Relationship Specialty Start Date End Date Daniel Menon PA-C [address] [place], [place] [address] PCP - General Physician Network Services Project Manager 12/12/20 documented as of this encounter
--- OUTSIDE RECORDS SUMMARY | 2023-03-24 18:16 | External Medical Summary | Summary of Care ---
Author Name Unknown Organization [facility] Address [address] [place] [address] Phone [phone] Care Team Providers Care Ada Accommodation Consultant Name Role Phone Daniel Menon PA-C Primary Care Provider +1- [phone] Reason for Visit * Reason Comments pre-op exam Pre op exam. 03/13/19 23, Dr. Rothman U. Encounter Details Date Type Department Care Team (Late st Contact Info) Description 03/05/2023 8:20 AM EST Office Visit General Internal Medicine [facility] [address] [facility] [place] [address] Daniel Menon PA-C [facility] [place] [address] Preop examination*; Lumbar degenerative disc disease; Major [...] 6 Tablet 0 12/22/2022 03/05/19 24 Discontinued Vijyjts-Kgnjes-Hx ell Pertussis 5-2.5-18.5 LF-MCG/0.5 Suspension Prefilled Syringe [...] Nodule of left lung 03/13/2008 Overview: Stable [id number] imaging ADVANCE DIRECTIVE INFORMATION 07/15/2004 [...] mRNA, LNP-s, No Pre serve, 2-Dose Series (Teliportme) 12/13/2020,05/02/2020,04/04/2020 COVID-19, MRNA-LNP, 23-24, P F, 30 MCG/0.3 mL, 12 YRS AND ABOVE, IM (PFIZER-Comirnaty) 02/26/2023 H1N1 2008 Influenza, IM 01/10/2009,01/08/2009 H1N1 2009 Influenza, Intranasal 01/10/2009 HEP A - Hepatitis A (Adult > 18 yrs) 03/12/2006 Pneumococcal Conjugate Vacc, 13 Valent (Prevnar) 03/21/2015 Pneumococcal Conjugate Vacci ne, 20-valent ([id number]) 02/12/2023 Pneumococcal Polysaccharide PPV23 (Pneumovax) 10/17/2013,06/12/2008 RSV [...] w/Guidance (12/28/2017); mastectomy, partial (Right, 09/29/2018); Identify [place] Node, Radioactive Tracer (Right, 11/03/2018); bx lymph [...] Low risk. Will CC. Dr. Rothman and [facility] anesthesia. Lumbar degenerative disc disease Plan as [...] 11:00 AM EST Office Visit Family Practice [facility] [address] [facility] [place] [address] Amy Lew MD [address] [facility] [place] [address] 06/10/2023 10:40 AM EDT Office Visit Neurology [facility] [place] [address] [facility] [place] [address] Mine Wade PA-C [address] [facility] [place] [address] 06/26/2023 10:15 AM EDT Office Visit Dermatology [facility] [address] [facility] [place] [address] Jayro Barker MD [address] [place] [address] 12/17/2023 2:00 PM EDT Office Visit Hematology/Oncology [facility] [address] [facility] [place], [place] [address] Dee Dee Ayala CRNP [address] [place] [address] 12/21/2023 11:00 AM EDT Imaging Radiology, [facility] [address] [facility] [place] [address] 01/12/2024 12:30 PM EST Office Visit Sleep Disorders [facility] [address] [place] [phone] Kerri Martin CRNP [address] [place] [address] 01/14/2024 9:00 AM EST Office Visit General Surgery, [facility] [address] [place] [address] Belkis Garcia MD [address] [place] [address] Health Maintenance Due Date Last Done Comments [...] Documents on File Type Date Recorded Patient Standards Analyst Expl anation Advance Directives and Living Will 03/13/2022 ADVANCE DIRECTIVE / LIVING WILL Power of Rn On Site 03/13/2022 POWER OF A TTORNEY Care Teams Ada Accommodation Consultant Relationship Specialty Start Date End Date Daniel Menon PA-C [address] [place], [place] [address] PCP - General Physician Operations Intelligence Superintendent 12/12/20 documented as of this encounter
--- OUTSIDE RECORDS SUMMARY | 2023-03-24 18:16 | External Medical Summary | Summary of Care ---
Author Name Unknown Organization [facility] Address [address] [place] [address] Phone [phone] Care Team Providers Care Data Deliverables Manager Name Role Phone Daniel Menon PA-C Primary Care Provider +1- [phone] Reason for Visit * Reason Comments pre-op exam Pre op exam. 03/13/19 23, Dr. Rothman U. Encounter Details Date Type Department Care Team (Late st Contact Info) Description 03/05/2023 8:20 AM EST Office Visit General Internal Medicine [facility] 200 [facility] [place] [address] Daniel Menon PA-C [facility] [place] [address] Preop examination*; Lumbar degenerative disc disease; Major [...] 6 Tablet 0 12/22/2022 03/05/19 24 Discontinued Xgzwvto-Nzdxwb-Ot ell Pertussis 5-2.5-18.5 LF-MCG/0.5 Suspension Prefilled Syringe [...] Nodule of left lung 03/13/2008 Overview: Stable [id number] imaging ADVANCE DIRECTIVE INFORMATION 07/15/2004 [...] mRNA, LNP-s, No Pre serve, 2-Dose Series (MesMateriaux) 12/13/2020,05/02/2020,04/04/2020 COVID-19, MRNA-LNP, 23-24, P F, 30 MCG/0.3 mL, 12 YRS AND ABOVE, IM (PFIZER-Comirnaty) 02/26/2023 H1N1 2008 Influenza, IM 01/10/2009,01/08/2009 H1N1 2009 Influenza, Intranasal 01/10/2009 HEP A - Hepatitis A (Adult > 18 yrs) 03/12/2006 Pneumococcal Conjugate Vacc, 13 Valent (Prevnar) 03/21/2015 Pneumococcal Conjugate Vacci ne, 20-valent ([id number]) 02/12/2023 Pneumococcal Polysaccharide PPV23 (Pneumovax) 10/17/2013,06/12/2008 RSV [...] w/Guidance (12/28/2017); mastectomy, partial (Right, 09/29/2018); Identify [place] Node, Radioactive Tracer (Right, 11/03/2018); bx lymph [...] Low risk. Will CC. Dr. Rothman and [facility] anesthesia. Lumbar degenerative disc disease [...] 11:00 AM EST Office Visit Family Practice [facility] 200 [facility] [place] [address] Amy Lew MD [address] [facility] [place] [address] 06/10/2023 10:40 AM EDT Office Visit Neurology [facility] [place] [address] [facility] [place] [address] Mine Wade PA-C [address] [facility] [place] [address] 06/26/2023 10:15 AM EDT Office Visit Dermatology [facility] [address] [facility] [place] [address] Jayro Barker MD [address] [place] [address] 12/17/2023 2:00 PM EDT Office Visit Hematology/Oncology [facility] 200 [facility] [place], [place] [address] Dee Dee Ayala CRNP [address] [place] [address] 12/21/2023 11:00 AM EDT Imaging Radiology, [facility] [address] [facility] [place] [address] 01/12/2024 12:30 PM EST Office Visit Sleep Disorders [facility] [address] [place] [phone] Kerri Martin CRNP [address] [place] [address] 01/14/2024 9:00 AM EST Office Visit General Surgery, 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
--- OUTSIDE RECORDS SUMMARY | 2023-03-24 18:16 | External Medical Summary | Summary of Care ---
Author Name Unknown Organization [facility] Address [address] [place] [address] Phone [phone] Care Team Providers Care Farm Marketer Name Role Phone Daniel Menon PA-C Primary Care Provider +1- [phone] Encounter Details Date Type Department Care Team (Late st Contact Info) Description 02/27/2023 Result Scan Unspecified Department <No scans attached> Allergies Active Allergy Reactions Criticality Noted Date Comments Elemental Sulfur 05/23/2015 Erythromycin Base 06/29/2000 hives Penicillins 06/29/2000 Augmentin hives Sulfa Antibiotics 09/17/1999 Hives documented as of this encounter (statuses as of 03/03/2023) Medications Medication Sig Dispensed Refills Start Date [...] as of this encounter (statuses as of 03/03/2023) Active Problems Problem Noted Date Diagnosed Date [...] Nodule of left lung 03/13/2008 Overview: Stable [id number] imaging ADVANCE DIRECTIVE INFORMATION 07/15/2004 Overview: No, Advance Directive brochure given to patient. DIVERTICULOSIS OF COLON 12/29/2003 HTN, goal below 140/90 11/28/2003 HISTORY OF TOBACCO USE Chronic sinusitis documented as of this encounter (statuses as of 03/03/2023) Resolved Problems Problem Noted Date Diagnosed Date [...] as of this encounter (statuses as of 03/03/2023) Immunizations Name Administration Dates Next Due COVID-19 mRNA, LNP-s, No Pre serve, 2-Dose Series ([employer]aco) 12/13/2020,05/02/2020,04/04/2020 COVID-19, MRNA-LNP, 23-24, P F, 30 MCG/0.3 mL, 12 YRS AND ABOVE, IM (PFIZER-Comirnaty) 02/26/2023 H1N1 2009 Influenza, IM 01/10/2009,01/08/2009 H1N1 2009 Influenza, Intranasal 01/10/2009 HEP A - Hepatitis A (Adult > 18 yrs) 03/12/2006 Pneumococcal Conjugate Vacc, 13 Valent (Prevnar) 03/21/2015 Pneumococcal Conjugate Vacci ne, 20-valent ([id number]) 02/12/2023 Pneumococcal Polysaccharide PPV23 (Pneumovax) 10/17/2013,06/12/2008 RSV [...] on file documented as of this encounter Plan of Treatment Upcoming Encounters Date Type Department Care Team (Late st Contact Info) Description 03/05/2023 8:20 AM EST Office Visit General Internal Medicine [facility] [place] [address] [place] [address] Daniel Menon PA-C [address] [place] [address] 04/01/2023 9:00 AM EST Office Visit General Internal Medicine [facility] [place] [address] [place] [address] Daniel Menon PA-C [address] [place] [address] 06/10/2023 10:40 AM EDT Office Visit Neurology [facility] [place] [address] [place] [address] [address] [address] Mine Wade PA-C [address] [place] [address] [address] [address] 06/26/2023 10:15 AM EDT Office Visit Dermatology [facility] [place] [address] [place] [address] [address] Jayro Barker MD [address] [place] [address] 12/17/2023 2:00 PM EDT Office Visit Hematology/Oncology [facility] [place] [address] [place] [address] [address] Dee Dee Ayala CRNP [address] [facility] [place] [address] 12/21/2023 11:00 AM EDT Imaging Radiology, [place] [address] [facility] [place] [address] 01/12/2024 12:30 PM EST Office Visit Sleep Disorders Ctr [facility] [address] [place] [phone] Kerri Martin CRNP [address] [place] [address] 01/14/2024 9:00 AM EST Office Visit General Surgery, [facility] [address] [place] [address] Belkis Garcia MD [address] [place] [address] Health Maintenance Due Date Last Done Comments Cologuard 1993 Sigmoidoscopy 1993 Fecal Occult Blood Test 11/18/2008 11/19/2007, 04/28 Zoster Vaccines (2 of 3) 12/29/2011 11/03/2011 Depression Screening 03/31/2023 03/31/2022 Mammogram 07/05/2023 07/04/2022, 06/23, 07/01/2021, Additional history exists GFR 11/29/2023 02/27/2023, 07/2022, 06/02/2022, Additional history exists Albumin/Creatinine [...] Not on filedocumented as of this encounter Procedures Procedure Name Priority Date/Time Associated Diagnosis Comments EKG SCANNED RESULT 02/27/2023 documented in this encounter Results * EKG SCANNED RESULT (02/27/2023) 02/27/2023 No Physician Data Unknown EKG documented in this encounter Advance Directives Documents on File Type Date Recorded Patient Merchandising Consultant Expl anation Advance Directives and Living Will 03/13/2022 ADVANCE DIRECTIVE / LIVING WILL Power of Crutch Maker 03/13/2022 POWER OF A TTORNEY Care Teams Farm Marketer Relationship Specialty Start Date End Date Daniel Menon PA-C [address] [place] [address] [place] [address] PCP - General Physician Therapeutic Specialist 12/12/20 documented as of this encounter
[2023-03-24] MEDS: MELATONIN 3 MG TAB PO SCH (20:42)
[2023-03-24] MEDS: clonazePAM 0.5 MG TAB PO SCH (20:42)
[2023-03-24] MEDS: ATORVASTATIN 20 MG TAB PO SCH (20:44)
[2023-03-24] MEDS: DOCUSATE SODIUM/SENNA 50/8.6MG TAB PO SCH (20:44)
[2023-03-25] MEDS: LACTATED RINGER'S 1,000 ML IV SCH (00:13)
[2023-03-25] MEDS ORDERED: VANCOMYCIN HCL 1,000 MG in SODIUM CHLORIDE 0.9% 500 ML IV SCH (00:30)
[2023-03-25] MEDS ORDERED: POLYETHYLENE (MIRALAX) 17 GM PACK PO SCH (06:00)
[2023-03-25 07:24] LABS: Basophils # (auto) 0.02 K/uL (0.00-0.20); Basophils % (auto) 0.2 %; Eosinophils # (auto) 0.01 K/uL (0.00-0.50); Eosinophils % (auto) 0.1 %; Hematocrit (blood only) 37.5 % (37.0-47.0); Hemoglobin 12.4 g/dl (12.0-16.0); Immature Granulocytes # (auto) 0.07 K/uL (0.01-0.20); Immature Granulocytes % (auto) 0.6 %; Lymphocytes # (auto) 1.09 K/uL (1.20-3.40); Lymphocytes % (auto) 9.1 %; Mean Corpuscular Hemoglobin 30.8 pg (25.0-34.0); Mean Corpuscular Hgb Conc 33.1 g/dL (32.0-36.0); Mean Corpuscular Volume 93.3 fL (80.0-100.0); Mean Platelet Volume 9.1 fL (9.4-12.4); Monocytes % (auto) 4.2 %; Neutrophils # (auto) 10.24 K/uL (1.40-6.50); Neutrophils % (auto) 85.8 %; Platelet Count 238 K/uL (130-400); RDW Coefficient of Variation 12.9 % (11.5-14.5); RDW Standard Deviation 44.2 fL (36.4-46.3); Red Blood Count 4.02 M/uL (4.20-5.40); White Blood Count 11.93 K/ul (4.8-10.8)
[2023-03-25 07:49] LABS: BUN Creatinine Ratio 23.8 (10-20); Creatinine Clr Calc Pharmacy 114.3 ml/min; Potassium 4.1 mmol/L (3.5-5.1)
[2023-03-25] MEDS: oxyCODONE HCL IR 5 MG TAB (IMMEDIATE RELEASE) PO PRN ×2 (08:03→20:28)
[2023-03-25] MEDS: LETROZOLE 2.5 MG TAB PO SCH (08:51)
[2023-03-25] MEDS: CHOLECALCIFEROL 25 MCG (1000 UNITS) TAB PO SCH (08:53)
[2023-03-25] MEDS: ASPIRIN 81 MG ECTAB PO SCH (08:53)
[2023-03-25] MEDS: amLODIPine BESYLATE 5 MG TAB PO SCH (08:54)
[2023-03-25] MEDS: CEROVITE ADV FORMULA TAB PO SCH (08:54)
[2023-03-25] MEDS: POLYETHYLENE (MIRALAX) 17 GM PACK PO SCH (08:55)
[2023-03-25] MEDS: CYANOCOBALAMIN (B-12) 500 MCG TABLET PO SCH (08:55)
[2023-03-25] MEDS: LORATADINE 10 MG TAB PO SCH (08:55)
[2023-03-25] MEDS: dexAMETHasone 6 MG in SYRINGE 0 ML IV SCH (08:55)
[2023-03-25] MEDS ORDERED: DULoxetine HCL 60 MG CAP PO SCH ×2 (09:00→21:00)
[2023-03-25] MEDS ORDERED: BUDESONIDE EC 3 MG CAP PO SCH (09:00)
--- NOTE | 2023-03-25 10:49 | Orthopedic Progress Note ---
Date of Service March 25, 2023 Assessment & Plan (1) Neurogenic claudication due to lumbar spinal stenosis: Plan: At this time we will continue physical therapy monitor ANJELICA operatively discharge home in the next few days. Admission and Anticipated Discharge Date Admission Date: March 24, 2023 Subjective Back pain is controlled leg pain markedly improved Physical Exam Physical Exam: Patient is distracted testing. Is comfortable. Results & Data Vital Signs (Past 12 Hours) Vital Signs Temp Pulse Resp BP Pulse Ox O2 Del Method 03/25/23 07:53 37.0 C 71 16 120/50 L 93 Room Air 03/25/23 03:10 36.3 C L 72 16 103/61 93 Room Air 03/24/23 23:02 36.3 C L 79 16 99/61 L 92 Room Air, CPAP
--- NOTE | 2023-03-25 14:23 | Hospitalist Progress Note ---
Date of Service March 25, 2023 Assessment & Plan (1) Neurogenic claudication due to lumbar spinal stenosis: Plan: - POD #1 s/p L3-L5 lumbar decompression fusion - Pain management, DVT ppx per the primary team, last BM this morning - adjust miralax to daily abdirahman with hx of colitis and recently finishing budesonide for collagenous colitis - PT/OT consults, pt is planning on outpatient therapy - has multiple friends who are helping her at home - Follow am CBC to monitor for acute blood loss, last Hgb of 14.4, repeat is 12.4 (2) Respiratory insufficiency: (3) Sleep apnea: Plan: CPAP at HS (4) Anxiety: Plan: Continue clonazepam 0.5 mg every afternoon, duloxetine 60 mg daily (5) Breast cancer: Plan: History of such, 2019, stable/in remission ER/TX positive, HER2/bon negative, status post right lumpectomy with SNL and removal, s/p XRT, no IV chemo. Pt taking oral letrozole tablet daily Follows with outpt oncology Continue vitamin D supplementation (6) Hypertension: Plan: Chronic, stable Can continue amlodipine p.o., baby aspirin daily DVT ppx: SCDS FULL CODE PCP: Daniel Menon PA-C Dispo: per primary Pt was seen and examined in collaboration with Dr. Sears, please see addendum A total of 45 minutes was spent coordinating, documenting, and providing care for this patient excluding time spent in the performance of separately billed services. This included personally viewing all current laboratories and imaging studies, medication reconciliation, outpatient chart review, and discussion with specialists. Admission and Anticipated Discharge Date Admission Date: March 24, 2023 Supervising Physician Co-Signing Physician Notes I have seen and discussed the case with the collaborating ROSANA. I agree with the above H&P. I have reviewed and confirmed the patients medical history, the findings on physical examination, and the patients diagnosis and treatment plan with Reji WAYNE and agree with the information documented. In short, Ms. Pantoja is a 72 year old woman with history of breast cancer on letrazole, collagenous colitis, BRENDA on CPAP, chronic insomnia who is now POD1 for lumbar decompression. Patient no longer requiring O2 Gen: Cooperative, pleasant female, sitting upright CV RRR, no murmur Respno wheezing, no crackles, good flow otherwise ABD: soft NTND MSK moving toes, sensation intact Neuro CN II-XII intact #Acute on chronic pulmonary insufficiency postoperative *resolved history of BRENDA, tobacco use, likely underlying COPD component -Wean oxygen as tolerated, now on room air Encourage IS use Use CPAP at night #Acute blood loss 2/2 post op Hgb 14 preop down to 12, trend H/H, transfuse < 7 #Neurogenic claudication s/p lumbar decompression -pain management per primary service -Follow CBC post op, transfuse < 7 -PT/OT as tolerated Resume all home chronic medications I spent a total of 15 minutes coordinating, documenting, and providing care for this patient excluding time spent in the performance of separately billed services. All of the aforementioned completed while collaborating with the assigned physician records management assistant for a full treatment plan. Subjective Patient was seen and examined in room 356-2. Follow up lumbar surgery. She denies any f/c/s, chest pain, sob, n/v/d. Her Back has minimal discomfort. She had lynch cath removed and is urinating w/o difficulty. Review of Systems Review of Systems: All systems reviewed & are unremarkable except as noted in HPI & below Physical Exam Physical Exam: Gen: WD/WN, sitting up in bedside chair, NAD, A&O x3 HEENT: Normocephalic, atraumatic, conjunctivae moist, sclerae anicteric, mucous membranes moist. Lung: Clear to Auscultation bilaterally, no wheezes/rales/rhonchi Heart: Regular rate, regular rhythm, no murmurs, rubs, or gallops Abdomen: Soft, NT, ND +BS x 4 Extremities: No edema, lumbar dressing CDI with ANJELICA drain with serosang drainage Skin: Warm, no rash, negative turgor. Results & Data Results & Data Vital Signs (Past 12 Hours) Vital Signs Temp Pulse Resp BP Pulse Ox O2 Del Method 03/25/23 07:53 37.0 C 71 16 120/50 L 93 Room Air 03/25/23 03:10 36.3 C L 72 16 103/61 93 Room Air Medications Administered Current Inpatient Medications Acetaminophen (Acetaminophen 500 Mg Tab) 1,000 mg PO Q8H PRN PRN Reason: MILD Pain Scale 1,2,3 & Pre PT Stop: 04/23/23 15:49 Al Hydrox/Mg Hydrox/Simethicone (Aluminum/Magnesium Susp 30 Ml Udc) 30 ml PO Q6H PRN PRN Reason: Dyspepsia Stop: 04/23/23 15:49 Amlodipine Besylate (Amlodipine Besylate 5 Mg Tab) 5 [facility] Stop: 04/24/23 08:59 Last Admin: 03/25/23 08:54 Dose: 5 mg Aspirin (Aspirin 81 Mg Ectab) 81 mg [facility] Stop: 04/24/23 08:59 Last Admin: 03/25/23 08:53 Dose: 81 mg Atorvastatin Calcium (Atorvastatin 20 Mg Tab) 20 mg PO QPM [facility] Stop: 04/23/23 20:59 Last Admin: 03/24/23 20:44 Dose: 20 mg Bisacodyl (Bisacodyl 10 Mg Supp) 10 mg TX DAILY PRN PRN Reason: Constipation Stop: 04/23/23 15:49 Budesonide (Budesonide Ec 3 Mg Cap) 9 mg PO DAILY [facility] Stop: 04/24/23 08:59 Clonazepam (Clonazepam 0.5 Mg Tab) 0.5 mg PO QPM [facility] Stop: 04/23/23 20:59 Last Admin: 03/24/23 20:42 Dose: 0.5 mg Cyanocobalamin (Cyanocobalamin (B-12) 500 Mcg Tablet) 1,000 mcg [facility] [place] Stop: 04/24/23 08:59 Last Admin: 03/25/23 08:55 Dose: 1,000 mcg Diphenhydramine HCl (Diphenhydramine Capsule 25 Mg Cap) 25 mg PO Q6H PRN PRN Reason: Allergic Rhinitis/Insomnia Stop: 04/23/23 15:49 Duloxetine HCl (Duloxetine Hcl 60 Mg Cap) 60 [facility] Stop: 04/24/23 08:59 Last Admin: 03/25/23 08:53 Dose: Not Given Famotidine (Famotidine 20 Mg Tab) 20 mg PO Q12H PRN PRN Reason: Dyspepsia Stop: 04/23/23 15:49 Hydromorphone HCl (Hydromorphone Inj 0.5 Mg/0.5 Ml Syr) 0.5 mg IV Q3H PRN PRN Reason: MODERATE Pain (Scale 4,5,6) & Pre PT Stop: 04/07/23 15:49 Hydromorphone HCl (Hydromorphone Inj 1 Mg/Ml Syringe) 1 mg IV Q3H PRN PRN Reason: SEVERE Pain (Scale 7,8,9,10) Stop: 04/07/23 15:49 Hydroxyzine HCl (Hydroxyzine Hcl 25 Mg Tab) 25 mg PO Q8H PRN PRN Reason: Anxiety Stop: 04/23/23 15:49 Promethazine HCl 12.5 mg/ (Sodium Chloride) 50.5 mls @ 202 mls/hr IV Q6H PRN PRN Reason: Nausea &/or Vomiting Stop: 04/23/23 15:49 Acetaminophen (Ofirmev) 1,000 mg in 100 mls @ 400 mls/hr IV Q8H PRN PRN Reason: Pain Rating 1-3 & Pre PT Stop: 03/25/23 15:51 Last Infusion: 03/25/23 00:11 Dose: Infused Lorazepam 0.5 mg/ Syringe 0.5 mls @ 2 mls/min IV Q8H PRN; Protocol PRN Reason: Sedation/Anxiety Stop: 04/23/23 15:49 Dexamethasone 6 mg/ Syringe 1.5 mls @ 1 mls/min IV DAILY [facility] Stop: 03/27/23 09:02 Last Admin: 03/25/23 08:55 Dose: 1 mls/min Influenza Virus Vaccine Quadrival (Do Not Administer Flu Vaccine) 1 each N/A PRN PRN PRN Reason: Notification Stop: 04/23/23 15:49 Letrozole (Letrozole 2.5 Mg Tab) 2.5 mg [facility] Stop: 04/24/23 08:59 Last Admin: 03/25/23 08:51 Dose: 2.5 mg Loratadine (Loratadine 10 Mg Tab) 10 mg PO QAM [facility] Stop: 04/24/23 08:59 Last Admin: 03/25/23 08:55 Dose: 10 mg Lorazepam (Lorazepam 0.5 Mg Tab) 0.5 mg PO Q8H PRN PRN Reason: Sedation/Anxiety Stop: 04/23/23 15:49 Magnesium Hydroxide (Magnesium Hydroxide Susp 30 Ml Udc) 30 ml PO Q24H PRN PRN Reason: Constipation Stop: 04/23/23 15:49 Melatonin (Melatonin 3 Mg Tab) 3 mg PO HS [facility] Stop: 04/23/23 20:59 Last Admin: 03/24/23 20:42 Dose: 3 mg Metoclopramide HCl (Metoclopramide Hcl Inj 5 Mg/Ml 2 Ml Vial) 10 mg IV Q6H PRN PRN Reason: Nausea &/or Vomiting Stop: 04/23/23 15:49 Multivitamins/Minerals (Cerovite Adv Formula Tab) 1 tab PO QAM ABDIRAMHAN Stop: 04/24/23 08:59 Last Admin: 03/25/23 08:54 Dose: 1 tab Naloxone HCl (Naloxone Hcl 0.4 Mg/1 Ml Vial/Carp) 0.1 mg IV Q5M PRN PRN Reason: Oversedation/Resp depression Stop: 04/23/23 15:49 Ondansetron HCl (Ondansetron Inj 2 Mg/Ml 2 Ml Vial) 4 mg IV Q6H PRN PRN Reason: Nausea &/or Vomiting Stop: 04/23/23 15:49 Ondansetron HCl (Ondansetron 4 Mg Od Tab) 4 mg PO Q6H PRN PRN Reason: Nausea Stop: 04/23/23 15:49 Oxycodone HCl (Oxycodone Hcl Ir 5 Mg Tab (Immediate Release)) 5 - 10 mg PO Q4H PRN PRN Reason: Pain & Pre PT Stop: 04/07/23 15:49 Last Admin: 03/25/23 08:03 Dose: 10 mg Pneumococcal Polyvalent Vaccine (Do Not Administer Pneumococcal Vaccine) 1 each N/A PRN PRN PRN Reason: Notification Stop: 04/23/23 15:49 Polyethylene Glycol (Polyethylene (Miralax) 17 Gm Pack) 17 gm PO DAILY ABDIRAHMAN Stop: 04/24/23 08:59 Last Admin: 03/25/23 08:55 Dose: 17 gm Senna/Docusate Sodium (Docusate Sodium/Senna 50/8.6mg Tab) 2 tab PO HS [facility] Stop: 04/23/23 20:59 Last Admin: 03/24/23 20:44 Dose: 2 tab Sodium Biphosphate/Sodium Phosphate (Sod Phosphate/Sod Biphosphate Enema 132 Ml Btl) 132 ml TX ONE PRN PRN Reason: Constipation Stop: 04/23/23 15:49 Tramadol HCl (Tramadol Hcl 50 Mg Tablet) 50 - 100 mg PO Q4H PRN PRN Reason: Moderate-Severe pain & Pre PT Stop: 04/23/23 15:49 Last Admin: 03/24/23 17:31 Dose: 50 mg Vitamin D (Cholecalciferol 1,000 Units 25 Mcg Tab) 2,000 units PO QAM [facility] Stop: 04/24/23 08:59 Last Admin: 03/25/23 08:53 Dose: 2,000 units
[2023-03-25] MEDS ORDERED: Nursing to Pharmacy Communication SCH (16:45)
[2023-03-25] MEDS: ACETAMINOPHEN 500 MG TAB PO PRN (17:33)
[2023-03-25] MEDS: ATORVASTATIN 20 MG TAB PO SCH (20:27)
[2023-03-25] MEDS: DOCUSATE SODIUM/SENNA 50/8.6MG TAB PO SCH (20:27)
[2023-03-25] MEDS: clonazePAM 0.5 MG TAB PO SCH (20:28)
[2023-03-25] MEDS: MELATONIN 3 MG TAB PO SCH (20:28)
[2023-03-26] MEDS: dexAMETHasone 6 MG in SYRINGE 0 ML IV SCH (08:00)
[2023-03-26] MEDS: POLYETHYLENE (MIRALAX) 17 GM PACK PO SCH (08:16)
[2023-03-26] MEDS: CEROVITE ADV FORMULA TAB PO SCH (08:18)
[2023-03-26] MEDS: ASPIRIN 81 MG ECTAB PO SCH (08:19)
[2023-03-26] MEDS: amLODIPine BESYLATE 5 MG TAB PO SCH (08:19)
[2023-03-26] MEDS: CHOLECALCIFEROL 25 MCG (1000 UNITS) TAB PO SCH (08:19)
[2023-03-26] MEDS: CYANOCOBALAMIN (B-12) 500 MCG TABLET PO SCH (08:20)
[2023-03-26] MEDS: LORATADINE 10 MG TAB PO SCH (08:20)
[2023-03-26] MEDS: LETROZOLE 2.5 MG TAB PO SCH (08:20)
--- NOTE | 2023-03-26 08:37 | Discharge Summary ---
Date of Service March 26, 2023 Admission HPI Per Admitting Provider This is a 72-year-old female presents with chronic persistent back and leg pain and failing course of nonoperative care is here for surgical intervention. Principal Diagnosis Lumbar spinal stenosis with neurogenic claudication Discharge Data Allergies Allergy/AdvReac Type Severity Reaction Status Date / Time Penicillins Allergy Mild hives Verified 03/24/23 11:38 MYCINS Allergy Mild Hives Uncoded 03/24/23 11:38 SULFA Allergy Unknown Hives Uncoded 03/24/23 11:38 Consultations 03/24/23 15:50 Consult Hospitalist Routine Procedures Performed Operation Date: 03/24/23 12:45 Actual Procedures p L4-L5 Decompression and Fusion, Spinal Cord Monitoring, Placement of Interbody L4-L5(Not Applicable) - Nikhil Rothman DO Ordered Studies 03/24/23 [place] lumbar spine 2-3V Routine Hospital Course (1) Neurogenic claudication due to lumbar spinal stenosis: Patient with lumbar decompression fusion tolerated as well as taken orthopedic for postoperative. Postop patient progressed appropriate. Leg pain markedly improved. Excellent strength testing. ANJELICA drain decreasing probably. Subsidy discharged home. Discharge orders instructions found in chart for further review. Total Time Total Time Spent Total Time Spent (In Minutes): 20 minutes Discharge Plan Discharge Items Patient Disposition: Home - Self-Care Reason For Visit: POSTOP Discharge Diagnosis: Lumbar spinal stenosis with neurogenic claudication Activity: As commented below Non-emergency contact: Primary Care Provider Call non-emergency contact if: you have any medication questions Follow-up/Referrals: Daniel Menon PA-C [Primary Care Provider] - Diet: Regular Addtl Attending Provider Instructions: ACTIVITY RECOMMENDATIONS: SELF CARE INSTRUCTIONS AFTER THORACIC/LUMBAR FUSIONS 1. You may walk to your tolerance. It is good exercise for your legs and back. Expect some back and intermittent leg aches and pains. 2. You may perform "counter-top" level activities (make a sandwich, chiraa with a project, etc.). 3. No bending or lifting of more than 10 pounds or back twisting of any nature (roll like a log when turning in bed). 4. You may ride in a car for 20-30 minutes at a time. No driving until after your first visit with your doctor. 5. Frequent changes of position and restricting sitting to 30 minutes at a time will help limit the amount of back spasms and stiffness you may experience. 6. You may discontinue the use of ambulatory aids (cane, crutches, etc.) once your strength and confidence allow. 7. You may marketing secretary the shower and let water strike your incision when you arrive home at least once daily. Do not take a tub bath, sit in a hot tub or go into a swimming pool until after your first recheck in the office. SPECIAL CARE INSTRUCTIONS: VERY IMPORTANT TO READ AND REVIEW A. Your surgical incision has been closed with a cosmetic suture under the skin that will dissolve in about 6 weeks. In 14 days, you can use a pair of clean scissors and cut the suture that is left outside of the skin at t he ends of your incision. 1. The small skin tapes can be removed 7 days after surgery if they have not fallen off by that point. 2. You may keep the wound open to air as much as possible to promote healing after post-op day number 5 unless told otherwise by your doctor. 3. If you think the wound looks like it is becoming infected (redness or worsening drainage) and/or you are experiencing fever, chill or worsening back pain and muscle spasms, contact the office so that we may evaluate you as soon as possible. B. Complications are uncommon, but please contact us if you have any signs or symptoms of: 1. wound infection (fever higher than 102.5 degrees F, redness, separation of wound, drainage, or increasing pain from the incision) 2. blood clots in legs (pain, swelling, redness and warmth in legs) 3. urinary tract infection (fever higher than 102.5 degrees F, burning upon urination or increased frequency of urination) 4. nerve problems (inability to walk on your toes or heels, numbness, loss of bowel or bladder control) 5. any other symptoms that concern you C. Please call the office at if you have any concerns or questions about your operation or recovery. D. No smoking! Smoking drastically decreases the chance of a solid fusion. E. Do not take any anti-inflammatory medications (Indocin, Advil, Motrin, Aspirin, Naprosyn, etc.) as these may inhibit the chance of a solid fusion. Tylenol is okay to take for pain. MANAGING PAIN AFTER SPINAL SURGERY 1. Narcotic medication is intended for short-term use and will be provided for surgical pain. Surgical pain usually lasts for a period of 4-6 weeks. Narcotic medication includes Percocet, Vicodin, Darvocet, Tylenol #3 or Lortab. 2. Longer-term pain is more appropriately treated with non-narcotic medication such as Tylenol ES. 3. Muscle spasm is not appropriately treated with narcotics. Muscle relaxers such as Soma, Flexeril or Skelaxin can be used along with Tylenol ES. 4. Remember that we all live with some "aches and pains". This is not unusual or uncommon after an injury or as we get older. a. Back pain is expected and may include muscle spasms for 4 to 6 weeks after surgery. The pain should gradually improve. If the pain worsens for no apparent reason, please contact the office. b. Intermittent leg pain may also be experienced and should not be concerned about unless it worsens for no apparent reason. If so, please contact the office. 5. We will provide appropriate medication within the normal guidelines of their prescribed use. We will also be very cautious and aware of potential abuse and extended duration of patients' medication needs. a. Pain medications are for your comfort and to assist with sleep and rest so that the tissue can heal. They are not provided in order to return to normal activity and should not be used through the day. To do so or worsening pain at night can result from ongoing tissue damage and development of tolerance to the prescribed medicine. 6. Please allow 2-3 days to process refills. Prescriptions will not be mailed but must be picked up at the office. FOLLOW UP VISIT: Keep your scheduled follow-up appointment. Any questions, please call the office at . Pending Studies at Discharge: No Stand-Alone Forms: My [facility] Specialized Tech, Smoking Cessation Medications and DC Order Prescriptions: New tramadol 50 mg tablet 50 mg PO Q6H PRN (Reason: pain, moderate) Qty: 30 0RF oxycodone 5 mg tablet 5 mg PO Q6H PRN (Reason: pain) Qty: 30 0RF Continued aspirin [Myrtle Low Dose Aspirin] 81 mg tablet,delayed release (DR/EC) 81 mg PO QAM loratadine [Claritin] 10 mg tablet 10 mg PO QAM melatonin 1 mg tablet 1 mg PO HS Ocuvite Adult 50 Plus 250-5-1 mg capsule 1 cap PO QAM mecobalamin (vitamin B12) 1,000 mcg tablet,chewable 1,000 mcg PO QAM cholecalciferol (vitamin D3) 50 mcg (2,000 unit) capsule 50 mcg PO QAM duloxetine 60 mg capsule,delayed release(DR/EC) 60 mg PO QAM atorvastatin 20 mg tablet 20 mg PO QPM clonazepam 0.5 mg tablet 0.5 mg PO QPM amlodipine 5 mg tablet 5 mg PO QAM letrozole 2.5 mg tablet 2.5 mg PO QAM budesonide 3 mg Capsule,Delayed,Extend.Release 9 mg PO UD Patient Comments: TID for one month, then BID for one month and then one tab daily multivitamin Tablet,Chewable 1 tab PO QAM Discharge Orders: Discharge Order (Routine); Ordered 03/26/23 Ordered By: Nikhil Rothman Admission Data Admit Date/Time: 03/24/23 14:32 Attending Provider: Nikhil Rothman Admit Provider: Nikhil Rothman Primary Care Provider: Daniel Menon Other Providers: Abena Steele
[2023-03-26] MEDS: ACETAMINOPHEN 500 MG TAB PO PRN (09:39)
[2023-03-26 11:31] VITALS: BP 109/65; PULSE 63; RESP 16; TEMP 98.1; O2SAT 95
--- NOTE | 2023-03-26 13:08 | Hospitalist Progress Note ---
Date of Service March 26, 2023 Assessment & Plan (1) Neurogenic claudication due to lumbar spinal stenosis: Plan: - POD #2 s/p L3-L5 lumbar decompression fusion - Pain management per primary team - PT/OT: pt is planning on outpatient therapy - has multiple friends who are helping her at home (2) Acute pulmonary insufficiency following nonthoracic surgery: Plan: history of BRENDA, tobacco use, likely underlying COPD component -Wean oxygen as tolerated, now on room air Encourage IS use Use CPAP at night (3) Sleep apnea: Plan: CPAP at HS (4) Acute blood loss as cause of postoperative anemia: Plan: hgb 14 preop down to 12, stable/asymptomatic follow up OP CBC (5) Anxiety: Plan: Continue clonazepam 0.5 mg every afternoon, duloxetine 60 mg daily (6) Breast cancer: Plan: History of such, 2018, stable/in remission ER/ME positive, HER2/bon negative, status post right lumpectomy with SNL and removal, s/p XRT, no IV chemo. Pt taking oral letrozole tablet daily Follows with outpt oncology Continue vitamin D supplementation (7) Hypertension: Plan: Chronic, stable Can continue amlodipine p.o., baby aspirin daily Discharge per primary ASA BID per Primary Admission and Anticipated Discharge Date Admission Date: March 24, 2023 Subjective Patient was seen and examined in room 356-2. Patient feels great today. Eager for discharge. She states that she is with good pain control, denies any SOB, chest pain, or concerns about returning home. Physical Exam Constitutional: patient sitting in bedside chair Respiratory: normal respiratory effort, lungs clear to auscultation Cardiovascular: RRR, no murmur, no edema Gastrointestinal (Abdomen): normal bowel sounds, soft, nontender, no hepatos plenomegaly Musculoskeletal: no cyanosis or clubbing, extremities motor strength 5/5 Results & Data Results & Data Vital Signs (Past 12 Hours) Vital Signs Temp Pulse Resp BP Pulse Ox O2 Del Method 03/26/23 11:30 36.7 C 63 16 109/65 95 Room Air 03/26/23 10:16 36.4 C L 72 18 133/65 93 03/26/23 07:17 Room Air 03/26/23 07:10 36.4 C L 72 18 133/65 93 Room Air Medications Administered Home Medications Medication Instructions Recorded Confirmed Last Taken amlodipine 5 mg tablet 5 mg PO QAM 10/16/19 03/24/23 03/24/23 08:00 atorvastatin 20 mg tablet 20 mg PO QPM 10/16/19 03/24/23 03/23/23 20:00 clonazepam 0.5 mg tablet 0.5 mg PO QPM 10/16/19 03/24/23 03/23/23 20:00 letrozole 2.5 mg tablet 2.5 mg PO QAM 10/16/19 03/24/23 03/24/23 08:00 aspirin 81 mg tablet,delayed 81 mg PO QAM 04/19/20 03/24/23 03/23/23 08:00 release (Myrtle Low Dose Aspirin) cholecalciferol (vitamin D3) 50 50 mcg PO QA 04/19/20 03/24/23 03/23/23 08:00 mcg (2,000 unit) capsule loratadine 10 mg tablet (Claritin) 10 mg PO [facility] 04/19/20 03/24/23 03/23/23 08:00 mecobalamin (vitamin B12) 1,000 1,000 mcg PO QA 04/19/20 03/24/23 03/23/23 08:00 mcg chewable tablet melatonin 1 mg tablet 1 mg PO 04/19/20 03/24/23 03/23/23 20:00 vit C,E,zinc,copper-gyddd8w 250 1 cap PO QA 04/19/20 03/24/23 03/23/23 08:00 mg-lutein 5 mg-zeaxanthin 1 mg capsule (Ocuvite Adult 50 Plus) duloxetine 60 mg capsule,delayed 60 mg PO [facility] 06/06/22 03/24/23 03/24/23 08:00 release budesonide 3 mg 9 mg PO UD 02/19/23 03/24/23 Unknown capsule,delayed,extended release multivitamin 1 tab PO QA 02/19/23 03/24/23 03/23/23 08:00 oxycodone 5 mg tablet 5 mg PO Q6H PRN pain #30 tabs 03/25/23 Unknown tramadol 50 mg tablet 50 mg PO Q6H PRN pain, moderate 03/25/23 Unknown #30 tabs
[2023-03-27] MEDS ORDERED: CHOLECALCIFEROL 25 MCG (1000 UNITS) TAB PO SCH (09:00)
== END 2023-03-26 12:41 | disposition home or self-care (01) | DRG 453 ==
LOC: ASU 11:14 → 3W 14:32